=== PATIENT | female | born 1970 | race Caucasian/White ===

== ENCOUNTER 2016-05-18 16:12 | Emergency (ER) | payer BC, OTHER ==
[~2016-05-18] VITALS: Ht 167.6 cm; Wt 53.5 kg
[~2016-05-18 16:12] MED LIST: PANT40TA PO
[2016-05-18 16:21] VITALS: TEMP 37; Ht 167.6 cm; Wt 53.5 kg
[2016-05-18] MEDS ORDERED: LASIX PO (16:28)
[2016-05-18] MEDS ORDERED: SYNTHROID PO (16:28)
[2016-05-18] MEDS ORDERED: ESOM20CA PO (16:28)
[2016-05-18] MEDS ORDERED: METF-384 PO (16:28)
--- NOTE | 2016-05-18 16:53 | EMERGENCY ROOM VISIT NOTE ---
History Report prepared by Claudia: Judd Moreland Under the Supervision of: Dr. Marco Antonio Streeter D.O. First contact with patient: 16:27 Chief Complaint: MENTAL HEALTH EVALUATION Stated Complaint: ELEVATED HEART RATE, MENTAL HEALTH EVAL History of Present Illness The patient is a 45 year old female who presents to the Emergency Room with complaints of persistent weight loss beginning eight years prior to arrival. She came to the ED for medical clearance to receive treatment for her mental health. The patient notes she struggles with anorexia and bulimia. She states she orders medication from a pharmacy in [place] that imports drugs from [place]. The patient notes she takes 1000 mg Levothyroxine daily, 100 mg Lasix daily, and 2-3 g Metformin daily. She states she normally takes 40 mg Prozac daily. The patient notes she takes these medications for weight loss purposes, and has been using these medications for the past eight years. 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 The patient notes she recently ran out of her medication, and she admitted to taking them from the hospital, because she could not help herself. She states she now has a supply of medication, but she would like to receive mental health treatment. The patient notes the most she has weighed was 170 pounds, and the least was 96 pounds. She states she was at her doctor's office today and weighed 118 pounds, but she views herself as needing to lose weight. The patient admits she liked her weight at 96 pounds but knew it was unhealthy. She states she was referred by her family doctor's office, and Caroline Roth PA-C ([facility]) referred her to the ED for medical clearance. The patient notes she sometimes uses laxatives adjusts her medications based on what she eats or how she is feeling. She denies having kidney functions tests performed. The patient notes she has a fast heart rate with the medications she takes, and she last took them this morning. She notes she has never received treatment for her anorexia and bulimia. The patient denies a chance of and being sexually active. She denies suicidal or homicidal ideation. Source of History: patient Onset: 8 years [employer] Position: other (global) Quality: other (weight loss) Timing: other (persistent) Note: Associates symptoms: using medications for weight loss, fast heart rate. Review of Systems See HPI for pertinent positives & negatives. A total of 10 systems reviewed and were otherwise negative. Past Medical & Surgical Medical Problems: (1) ANEMIA NOS (2) IRON DEFIC ANEMIA NOS (3) PERSONAL HISTORY OF PEPTIC ULCER DISEASE Family History Diabetes mellitus Hypertension Social History Smoking Status: Never Smoker Alcohol Use: occasionally Housing Status: lives with family Occupation Status: employed Current/Historical Medications Scheduled Esomeprazole Magnesium (Nexium), 20 MG PO DAILY Metformin Hcl (Glucophage), 1,000-2,000 MG PO BID [Lasix], 100-200 MG PO QAM [Synthroid], 1,200 MCG PO QAM Allergies Coded Allergies: No Known Allergies (Unverified , 05/18/16) Physical Exam Vital Signs Date Time Temp Pulse Resp B/P Pulse Ox O2 Delivery O2 Flow Rate FiO2 05/18/16 20:56 106 18 114/81 98 05/18/16 20:19 106 18 114/81 98 Room Air 05/18/16 16:21 37.0 136 20 139/106 100 Physical Exam CONSTITUTIONAL/VITAL SIGNS: Reviewed / noted above. GENERAL: Non-toxic in appearance. INTEGUMENTARY: Warm, dry, and [place]. HEAD: Normocephalic. EYES: without scleral icterus or trauma. ENT/OROPHARYNX: clear and moist. LYMPHADENOPATHY/NECK: Is supple without lymphadenopathy or meningismus. RESPIRATORY: Lungs clear and equal. CARDIOVASCULAR: Tachycardic rate and regular rhythm. GI/ABDOMEN: Soft and nontender. No organomegaly or pulsatile mass. No rebound or guarding. Normal bowel sounds. EXTREMITIES: Warm and well perfused. BACK: No CVA tenderness. NEUROLOGICAL: Intact without focal deficits. PSYCHIATRIC: Remorseful and tearful. Not suicidal or homicidal. MUSCULOSKELETAL: Normally developed with good muscle tone. Medical Decision & Procedures Laboratory Results 05/18/16 17:05 Red Blood Count 4.78, Mean Corpuscular Volume 87.4, Mean Corpuscular Hemoglobin 28.7, Mean Corpuscular Hemoglobin Concent 32.8, Mean Platelet Volume 10.7, Neutrophils (%) (Auto) 66.6, Lymphocytes (%) (Auto) 27.0, Monocytes (%) (Auto) 5.9, Eosinophils (%) (Auto) 0.3, Basophils (%) (Auto) 0.0, Neutrophils # (Auto) 4.04, Lymphocytes # (Auto) 1.64, Monocytes # (Auto) 0.36, Eosinophils # (Auto) 0.02, Basophils # (Auto) 0.00 05/18/16 17:05 Test 05/18/16 17:05 White Blood Count 6.07 K/uL (4.8-10.8) Red Blood Count 4.78 M/uL (4.2-5.4) Hemoglobin 13.7 g/dL (12.0-16.0) Hematocrit 41.8 % (37-47) Mean Corpuscular Volume 87.4 fL (80-100) Mean Corpuscular Hemoglobin 28.7 pg (25-34) Mean Corpuscular Hemoglobin Concent 32.8 g/dl (32-36) Platelet Count 311 K/uL (130-400) Mean Platelet Volume 10.7 fL (7.4-10.4) Neutrophils (%) (Auto) 66.6 % Lymphocytes (%) (Auto) 27.0 % Monocytes (%) (Auto) 5.9 % Eosinophils (%) (Auto) 0.3 % Basophils (%) (Auto) 0.0 % Neutrophils # (Auto) 4.04 K/uL (1.4-6.5) Lymphocytes # (Auto) 1.64 K/uL (1.2-3.4) Monocytes # (Auto) 0.36 K/uL (0.11-0.59) Eosinophils # (Auto) 0.02 K/uL (0-0.5) Basophils # (Auto) 0.00 K/uL (0-0.2) RDW Standard Deviation 45.4 fL (36.4-46.3) RDW Coefficient of Variation 14.1 % (11.5-14.5) Immature Granulocyte % (Auto) 0.2 % Immature Granulocyte # (Auto) 0.01 K/uL (0.00-0.02) Urine Test NEG (NEG) Anion Gap 12.0 mmol/L (3-11) Est Creatinine Clear Calc Drug Dose 71.4 ml/min Estimated GFR () 97.3 Estimated GFR (Non- 83.9 BUN/Creatinine Ratio 17.6 (10-20) Calcium Level 9.9 mg/dl (8.5-10.1) Total Bilirubin 0.4 mg/dl (0.2-1) Direct Bilirubin < 0.1 mg/dl (0-0.2) Aspartate Amino Transf (AST/SGOT) 27 U/L (15-37) Alanine Aminotransferase (ALT/SGPT) 51 U/L (12-78) Alkaline Phosphatase 106 U/L (45-117) Total Protein 8.4 gm/dl (6.4-8.2) Albumin 4.4 gm/dl (3.4-5.0) Thyroid Stimulating Hormone (TSH) < 0.005 uIu/ml (0.300-4.500) Free Thyroxine > 8.00 ng/dl (0.80-1.60) Free Triiodothyronine > 20.00 pg/ml (2.30-4.20) Salicylates Level < 1.7 mg/dl (2.8-20) Urine Opiates Screen NEG (NEG) Urine Methadone, Qualitative NEG (NEG) Acetaminophen Level < 2 ug/ml (10-30) Urine Barbiturates NEG (NEG) Urine Phencyclidine (PCP) Level NEG (NEG) Ur Amphetamine/Methamphetamine NEG (NEG) MDMA (Ecstasy) Screen NEG (NEG) Urine Benzodiazepines Screen NEG (NEG) Urine Cocaine Metabolite NEG (NEG) Urine Marijuana (THC) NEG (NEG) Ethyl Alcohol mg/dL < 3.0 mg/dl (0-3) Laboratory results as stated above per my review. ECG Indication: tachycardia Rate (beats per minute): 113 Rhythm: sinus tachycardia Findings: no ectopy, other (no acute injury) ED Course 163: Previous medical records were reviewed. The patient was evaluated in room A5. A complete history and physical examination was performed. 2044: On reevaluation, the patient is doing well. I discussed the results and findings with the patient. She verbalized agreement of the treatment plan. The patient was discharged home. Medical Decision differential includes toxic ingestions, self-mutilation, suicidal ideation, suicide attempt, depression. This is a 45-year-old female who presents to the ED with a chief complaint of bulimia/anorexia and using medications to control her weight. The patient states that she has been doing this for about 8 years. She has been using online prescriptions from foreign distributor's. She has been using up to 100 mg of Lasix a day, up to 3 g of metformin and 1200 g of Synthroid. The patient was cut taking medication from a Pyxis machine at [facility] and is at risk of losing her job. The patient came here for help with her problems. She has spoken with a pillowcase cleaner outpatient. The patient is not suicidal or homicidal. Her exam reveals tachycardia. She states that she is normally always tachycardic because of the medication that she is taking. She has no other complaints from a medical standpoint. EKG shows a sinus tachycardia rate 113. CBC was normal. Complete metabolic panel was unremarkable. A TSH is less than 0.005. Repeat T4 is greater than 8 and a free T3 is greater than 20. The patient had similar laboratory studies on 08/18. This is likely related the fact she is taking Synthroid and excess doses. The patient's tox screen was negative and test was negative. The patient is felt to be stable for mental health evaluation. After mental health evaluation, the patient was felt to be stable for discharge. She was not meeting criteria for inpatient care at this time. Outpatient follow-up recommended. Impression Primary Impression: Eating disorder Additional Impression: Drug abuse and dependence Scribe Attestation The scribe's documentation has been prepared under my direction and personally reviewed by me in its entirety. I confirm that the note above accurately reflects all work, treatment, procedures, and medical decision making performed by me. Departure Information Dispostion Home / Self-Care Referrals Caroline Roth C.R.N.P. (PCP) Forms HOME CARE DOCUMENTATION FORM, IMPORTANT VISIT INFORMATION Patient Instructions A Signature Page, My [facility] Additional Instructions Follow-up as recommended with outpatient services. Return for any worsening or new concerns.
[2016-05-18 17:19] LABS: COMPLETE YES; EOS % 0.3 %; HEMATOCRIT 41.8 % (37-47); IG% 0.2 %; LYMPH ABS # 1.64 K/uL (1.2-3.4); MEAN CELL VOLUME 87.4 fL (80-100); MEAN CORPUSCULAR HEMOGLOBIN 28.7 pg (25-34); MEAN CORPUSCULAR HGB CONC 32.8 g/dl (32-36); MEAN PLATELET VOLUME 10.7 fL (7.4-10.4); MONO % 5.9 %; NEUT % 66.6 %; PLATELET COUNT 311 K/uL (130-400); RED BLOOD COUNT 4.78 M/uL (4.2-5.4); WHITE BLOOD COUNT 6.07 K/uL (4.8-10.8)
[2016-05-18 17:40] LABS: ALT/SGPT 51 U/L (12-78); AST/SGOT 27 U/L (15-37); BLOOD UREA NITROGEN 15 mg/dl (7-18); BUN/CREATININE RATIO 17.6 (10-20); CALCIUM 9.9 mg/dl (8.5-10.1); CARBON DIOXIDE 33 mmol/L (21-32); CHLORIDE 93 mmol/L (98-107); CREATININE 0.84 mg/dl (0.60-1.20); GLUCOSE 99 mg/dl (70-99); POTASSIUM 3.4 mmol/L (3.5-5.1); SODIUM 138 mmol/L (136-145)
[2016-05-18 17:46] LABS: ACETAMINOPHEN < 2 ug/ml (10-30)
[2016-05-18 17:47] LABS: BENZODIAZEPINE, URINE NEG (NEG); COCAINE,URINE NEG (NEG); PHENCYCLIDINE, URINE NEG (NEG)
[2016-05-18 17:51] LABS: ALKALINE PHOSPHATASE 106 U/L (45-117); THYROID STIMULATING HORMONE < 0.005 uIu/ml (0.300-4.500)
[2016-05-18 20:56] VITALS: BP 114/81; PULSE 106; O2SAT 98
== END 2016-05-18 20:57 | disposition home or self-care (01) ==
LOC: C.EDB 16:14 → C.EDA 20:57
DX: F50.9 Eating disorder, unspecified (principal); F19.20 Other psychoactive substance dependence, uncomplicated; D50.9 Iron deficiency anemia, unspecified; K27.9 Peptic ulcer, site unspecified, unspecified as acute or chronic, without hemorrhage or perforation; Z83.3 Family history of diabetes mellitus; Z82.49 Family history of ischemic heart disease and other diseases of the circulatory system; Z79.899 Other long term (current) drug therapy

== ENCOUNTER → 2016-09-28 | Outpatient (CLI) | payer OTHER ==
[~2016-09-28] MED LIST changes: +ACET325T96 PO; +BISA10SU5 RE; +CIPR-255 PO; +CPR/500 PO; +ESOM20CA PO; +FLUO27.5 PO; +FLUO40CA8 PO; +LASIX PO; +METF-384 PO; +ONDA4TAB10 SL; +ONDA4TAB46 PO; -PANT40TA PO; +POLY335019 PO; +SENN-61 PO; +SULF-183 PO; +SYNTHROID PO
[2016-09-28 13:15] LABS: FERRITIN 13.7 ng/ml (8.0-388.0); THYROID STIMULATING HORMONE 1.64 uIu/ml (0.300-4.500)
--- NOTE | 2016-10-20 10:28 | CODING QUERY MEDICAL NECESSITY ---
CQSUPPORTING DIAGNOSIS NEEDED A supporting diagnosis is required for the test/procedure performed on this patient in order for us to be reimbursed by the patient's insurance. Please provide a supporting diagnosis for the following test/procedure listed below next to the test name along with your signature. *If there is no additional diagnosis for this patient that would support the following test/procedure please document that below next to the test/procedure. Test(s)/Procedure(s) that require a supporting diagnosis: DOS 09/28/16 VITAMIN D TEST Provider Signature: Date: Thank you Carmen Jacobo Health Information Management Once completed, please kindly fax back to [phone] For questions please call [phone]
== END | disposition home or self-care (01) ==
LOC: C.LAB1850 09:44
PROVIDERS: ATTEND Internal Medicine Endocrinology, Diabetes & Metabolism
DX: E05.40 Thyrotoxicosis factitia without thyrotoxic crisis or storm (principal); D50.9 Iron deficiency anemia, unspecified; F50.9 Eating disorder, unspecified; N20.0 Calculus of kidney

== ENCOUNTER 2017-03-19 12:48 | Inpatient (IN) | payer OTHER ==
[~2017-03-19] VITALS: Ht 165.1 cm; Wt 58.8 kg
[~2017-03-19 12:48] MED LIST changes: -ACET325T96 PO; -BISA10SU5 RE; -CIPR-255 PO; -CPR/500 PO; -FLUO27.5 PO; -FLUO40CA8 PO; -ONDA4TAB10 SL; -ONDA4TAB46 PO; -POLY335019 PO; -SENN-61 PO; -SULF-183 PO
[2017-03-19] MEDS ORDERED: KETOROLAC TROMETHAMINE 15 MG/ML VIAL IV STA (13:31)
[2017-03-19] MEDS ORDERED: SODIUM CHLORIDE 0.9% 1000ML 1,000 ML IV STA ×2 (13:31→14:26)
[2017-03-19 13:55] LABS: COMPLETE YES; EOS % 0.2 %; IG% 0.2 %; LYMPH % 7.9 %; LYMPH ABS # 0.37 K/uL (1.2-3.4); MEAN CELL VOLUME 84.5 fL (80-100); MEAN CORPUSCULAR HEMOGLOBIN 28.5 pg (25-34); MEAN CORPUSCULAR HGB CONC 33.7 g/dl (32-36); MEAN PLATELET VOLUME 9.8 fL (7.4-10.4); MONO % 7.7 %; PLATELET COUNT 124 K/uL (130-400); RED BLOOD COUNT 3.55 M/uL (4.2-5.4)
[2017-03-19] MEDS ORDERED: ACET325T96 PO (14:08)
[2017-03-19] MEDS ORDERED: CIPR-255 PO (14:08)
[2017-03-19] MEDS ORDERED: FLUO40CA8 PO (14:08)
[2017-03-19 14:14] LABS: BUN/CREATININE RATIO 22.1 (10-20); CALCIUM 9.1 mg/dl (8.5-10.1); CREATININE 1.71 mg/dl (0.60-1.20); POTASSIUM 2.7 mmol/L (3.5-5.1)
[2017-03-19 14:17] LABS: ALB/GLOB RATIO 0.5 (0.9-2)
[2017-03-19 14:31] LABS: URINE APPEARANCE CLOUDY (CLEAR); URINE BILIRUBIN NEG (NEG); URINE COLOR YELLOW; URINE EPITHELIAL CELL AUTO >30 /lpf (0-5); URINE NITRITE NEG (NEG); URINE SPECIFIC GRAVITY 1.019 (1.000-1.030); UROBILINOGEN NEG (NEG); ZZUR CULT IF INDIC CLEAN CATCH YES
[2017-03-19 14:44] LABS: MANUAL MICROSCOPIC REQUIRED? NO; REVIEW REQ? YES
[2017-03-19 14:47] LABS: URINE PATH CASTS 0-3 GRANULAR CASTS /lpf (0)
--- NOTE | 2017-03-19 14:50 | DIAGNOSTIC IMAGING REPORT ---
ULTRASOUND KIDNEYS AND BLADDER CLINICAL HISTORY: Bilateral flank pain. Urinary tract infection. COMPARISON STUDY: Abdominal CT dated 10/15/2011. TECHNIQUE: Real-time, grayscale, and color flow sonography of the kidneys and bladder is performed. Images are reviewed in the transverse and longitudinal planes. FINDINGS: Kidneys: The kidneys are normal in size and echotexture. Right kidney appears mildly edematous. The right kidney measures 12.2 cm in length and the left kidney measures 11.7 cm in length. There is no hydronephrosis. No shadowing renal calculi are identified. There is no sonographic evidence of contour deforming renal mass lesion. No perinephric fluid is identified. Bladder: The bladder is normal in appearance. Bilateral ureteral jets were seen. IMPRESSION: 1. The kidneys are normal in size and without hydronephrosis. 2. The right kidney appears mildly edematous. Correlate clinically and with urinalysis for evidence of pyelonephritis. 3. The bladder was normal as visualized. Electronically signed by: Earle Monae M.D. 03/19/2017 2:49 PM Dictated Date/Time: 03/19/2017 2:47 PM
[2017-03-19] MEDS ORDERED: CEFTRIAXONE SOD INJ 1 GM ADDVIAL IV STA (14:58)
[2017-03-19] MEDS ORDERED: POTASSIUM CHLORIDE 10 MEQ / 100ML WTR IV STA (14:58)
[2017-03-19] MEDS ORDERED: POTASSIUM CHLR 10MEQ / WTR IV ONE (15:30)
--- NOTE | 2017-03-19 15:30 | EMERGENCY ROOM VISIT NOTE ---
History First contact with patient: 13:15 Chief Complaint: OTHER COMPLAINT Stated Complaint: POSSIBLE KIDNEY INFECTION History of Present Illness The patient is a 46 year old female who presents to the Emergency Room with complaints of vomiting and back pain. The patient states that 5 days ago, she developed lower abdominal discomfort and had a strong odor in her urine. She was seen by [facility] 2 days ago and diagnosed with a urinary tract infection. She was placed on ciprofloxacin but states that since starting this , she has been vomiting and has not been able to keep the medication down. She has had chills at home but has not taken her temperature. She developed pain in both sides of her back over the past one day. She has been taking Tylenol and ibuprofen at home for her symptoms. She does state she was able to keep down her dose of ciprofloxacin last night and this morning. She has a history of kidney stones but states this does not feel similar. She rates her overall discomfort a 7/10. She reports she has not had anything to eat or drink over the past 4 days. Review of Systems A complete 10 point review of systems was reviewed with the patient with pertinent positives and negatives as per history of present illness. All else were negative. Past Medical/Surgical History Medical Problems: (1) ANEMIA NOS (2) IRON DEFIC ANEMIA NOS (3) PERSONAL HISTORY OF PEPTIC ULCER DISEASE (4) Pyelonephritis (5) Vomiting Family History Diabetes mellitus Hypertension Social History Smoking Status: Never Smoker Alcohol Use: occasionally Housing Status: lives with family Occupation Status: employed Current/Historical Medications Scheduled Ciprofloxacin Hcl (Cipro), 1 TAB PO BID Esomeprazole Magnesium (Nexium), 20 MG PO DAILY Miscellaneous Medications Acetaminophen Tab (Tylenol), 325 MG PO Fluoxetine (Prozac), 40 MG PO Physical Exam Vital Signs Date Time Temp Pulse Resp B/P (MAP) Pulse Ox O2 Delivery O2 Flow Rate FiO2 03/19/17 16:33 78 03/19/17 15:47 79 20 104/71 99 Room Air 03/19/17 15:01 79 18 106/75 100 Room Air 03/19/17 12:53 37.0 89 18 105/74 97 Room Air Physical Exam VITALS: Vitals are noted on the nurse's note and reviewed by myself. Vital signs stable. GENERAL: This is a 46-year-old female, in no acute distress, nondiaphoretic, well-developed well-nourished. EARS: External auditory canals clear, tympanic membranes pearly durant without erythema or effusion bilaterally. EYES: Pupils equal round and reactive to light and accommodation. MOUTH: Mucous membranes slightly dry. HEART: Regular rate and rhythm without murmurs gallops or rubs. LUNGS: Clear to auscultation bilaterally without wheezes, rales or rhonchi. ABDOMEN: Positive bowel sounds x 4. Soft, mild lower abdominal tenderness. Bilateral CVA tenderness. NEURO: Patient was alert and oriented to person place and time. Medical Decision & Procedures ER Provider Diagnostic Interpretation: ULTRASOUND KIDNEYS AND BLADDER CLINICAL HISTORY: Bilateral flank pain. Urinary tract infection. COMPARISON STUDY: Abdominal CT dated 10/15/2011. TECHNIQUE: Real-time, grayscale, and color flow sonography of the kidneys and bladder is performed. Images are reviewed in the transverse and longitudinal planes. FINDINGS: Kidneys: The kidneys are normal in size and echotexture. Right kidney appears mildly edematous. The right kidney measures 12.2 cm in length and the left kidney measures 11.7 cm in length. There is no hydronephrosis. No shadowing renal calculi are identified. There is no sonographic evidence of contour deforming renal mass lesion. No perinephric fluid is identified. Bladder: The bladder is normal in appearance. Bilateral ureteral jets were seen. IMPRESSION: 1. The kidneys are normal in size and without hydronephrosis. 2. The right kidney appears mildly edematous. Correlate clinically and with urinalysis for evidence of pyelonephritis. 3. The bladder was normal as visualized. CT SCAN OF THE ABDOMEN AND PELVIS WITHOUT IV CONTRAST IMPRESSION: 1. The right kidney appears mildly enlarged and edematous, and there is right-sided perinephric stranding. Correlate clinically and with urinalysis for evidence of pyelonephritis. 2. The left kidney is normal in appearance. 3. No renal calculi are identified. Laboratory Results 03/19/17 13:43 Red Blood Count 3.55, Mean Corpuscular Volume 84.5, Mean Corpuscular Hemoglobin 28.5, Mean Corpuscular Hemoglobin Concent 33.7, Mean Platelet Volume 9.8, Neutrophils (%) (Auto) 84.0, Lymphocytes (%) (Auto) 7.9, Monocytes (%) (Auto) 7.7, Eosinophils (%) (Auto) 0.2, Basophils (%) (Auto) 0.0, Neutrophils # (Auto) 3.95, Lymphocytes # (Auto) 0.37, Monocytes # (Auto) 0.36, Eosinophils # (Auto) 0.01, Basophils # (Auto) 0.00 03/19/17 13:43 Test 03/19/17 13:43 03/19/17 15:29 White Blood Count 4.70 K/uL (4.8-10.8) Red Blood Count 3.55 M/uL (4.2-5.4) Hemoglobin 10.1 g/dL (12.0-16.0) Hematocrit 30.0 % (37-47) Mean Corpuscular Volume 84.5 fL (80-100) Mean Corpuscular Hemoglobin 28.5 pg (25-34) Mean Corpuscular Hemoglobin Concent 33.7 g/dl (32-36) Platelet Count 124 K/uL (130-400) Mean Platelet Volume 9.8 fL (7.4-10.4) Neutrophils (%) (Auto) 84.0 % Lymphocytes (%) (Auto) 7.9 % Monocytes (%) (Auto) 7.7 % Eosinophils (%) (Auto) 0.2 % Basophils (%) (Auto) 0.0 % Neutrophils # (Auto) 3.95 K/uL (1.4-6.5) Lymphocytes # (Auto) 0.37 K/uL (1.2-3.4) Monocytes # (Auto) 0.36 K/uL (0.11-0.59) Eosinophils # (Auto) 0.01 K/uL (0-0.5) Basophils # (Auto) 0.00 K/uL (0-0.2) RDW Standard Deviation 53.5 fL (36.4-46.3) RDW Coefficient of Variation 17.1 % (11.5-14.5) Immature Granulocyte % (Auto) 0.2 % Immature Granulocyte # (Auto) 0.01 K/uL (0.00-0.02) Urine Color YELLOW Urine Appearance CLOUDY (CLEAR) Urine pH 5.0 (4.5-7.5) Urine Specific [place] 1.019 (1.000-1.030) Urine Protein 2+ (NEG) Urine Glucose (UA) NEG (NEG) Urine Ketones TRACE (NEG) Urine Occult Blood 2+ (NEG) Urine Nitrite NEG (NEG) Urine Bilirubin NEG (NEG) Urine Urobilinogen NEG (NEG) Urine Leukocyte Esterase SMALL (NEG) Urine WBC (Auto) 10-30 /hpf (0-5) Urine RBC (Auto) 5-10 /hpf (0-4) Urine Hyaline Casts (Auto) 1-5 /lpf (0-5) Urine Epithelial Cells (Auto) >30 /lpf (0-5) Urine Bacteria (Auto) NEG (NEG) Urine Renal Epithelial Cells 0-5 /lpf (0-5) Urine Crystals AMORPHOUS SEDIMENT (NONE Urine Pathogenic Casts 0-3 GRANULAR CASTS /lpf (0) Urine Yeast (Auto) (NONE PRSENT) Urine Test NEG (NEG) Anion Gap 12.0 mmol/L (3-11) Est Creatinine Clear Calc Drug Dose 37.0 ml/min Estimated GFR () 40.9 Estimated GFR (Non- 35.3 BUN/Creatinine Ratio 22.1 (10-20) Calcium Level 9.1 mg/dl (8.5-10.1) Magnesium Level 2.8 mg/dl (1.8-2.4) Total Bilirubin 0.3 mg/dl (0.2-1) Aspartate Amino Transf (AST/SGOT) 32 U/L (15-37) Alanine Aminotransferase (ALT/SGPT) 70 U/L (12-78) Alkaline Phosphatase 191 U/L (45-117) Total Protein 7.5 gm/dl (6.4-8.2) Albumin 2.5 gm/dl (3.4-5.0) Globulin 5.0 gm/dl (2.5-4.0) Albumin/Globulin Ratio 0.5 (0.9-2) Lipase 85 U/L (73-393) Bedside Lactic Acid Venous 0.99 mmol/L (0.90-1.70) Medications Administered Medications (Trade) Dose Ordered Sig/Andrei Route Start Time Stop Time Status Last Admin Dose Admin Sodium Chloride 1,000 ml @ 999 mls/hr Q1H1M STAT IV 03/19/17 13:31 03/19/17 14:31 DC 03/19/17 13:54 999 MLS/HR Sodium Chloride 1,000 ml @ 999 mls/hr Q1H1M STAT IV 03/19/17 14:26 03/19/17 15:26 DC 03/19/17 15:00 999 MLS/HR Ceftriaxone Sodium (Rocephin Inj) 1 gm NOW STAT IV 03/19/17 14:58 03/19/17 15:06 DC 03/19/17 15:14 1 GM Potassium Chloride 10 meq/ Prmx 100 ml @ 100 mls/hr ONE ONCE IV 03/19/17 15:30 03/19/17 16:29 DC 03/19/17 15:48 100 MLS/HR Acetaminophen (Tylenol Tab) 650 mg Q4H PRN PO 03/19/17 16:30 04/18/17 16:29 03/19/17 18:52 650 MG ECG Rate (beats per minute): 79 Rhythm: normal sinus Findings: no acute ischemic change, no ectopy, other (short ND) ED Course The patient was evaluated as above. Labs were drawn and IV access was obtained. Patient was medicated with 1 L normal saline solution. Patient was reevaluated and was feeling better after receiving IV fluids. Findings were discussed with the patient. She is agreeable to admission. Case was discussed with the [facility] hospitalist, Dr. Muniz. They agreed to evaluate the patient for admission. Medical Decision Differential diagnosis includes pyelonephritis, kidney stone, cystitis, dehydration, appendicitis, cholecystitis, among others. The patient is a 46-year-old female who presents today complaining of back pain and vomiting. The patient has been treated with ciprofloxacin at home for a presumed urinary tract infection. Labs revealed a mild pancytopenia. Patient has been anemic in the past. Labs also revealed hypokalemia with a potassium of 2.7. Patient does appear to be dehydrated with a BUN of 38 and creatinine of 1.7. Urinalysis was suggestive of possible infection. Additionally, renal ultrasound shows evidence of right-sided pyelonephritis. I do feel that given the patient's labs and lack of improvement despite antibiotic treatment, she will need to be admitted for further evaluation and care. Her hypokalemia is likely secondary to the vomiting. The patient was agreeable to this. She felt much better after receiving IV fluids in the emergency department. [facility] the patient for [facility]. The patient's case was reviewed with Dr. Falk, ED attending physician, who agreed with my assessment and treatment plan. Medication Reconcilliation Current Medication List: was personally reviewed by me Blood Pressure Screening Patient's blood pressure: Normal blood pressure Impression Primary Impression: Pyelonephritis Additional Impressions: Dehydration Hypokalemia Departure Information Referrals Caroline Roth, C.R.N.P. (PCP) Patient Instructions My [facility] Problem Qualifiers
--- NOTE | 2017-03-19 15:49 | DIAGNOSTIC IMAGING REPORT ---
CT SCAN OF THE ABDOMEN AND PELVIS WITHOUT IV CONTRAST CLINICAL HISTORY: Generalized abdominal pain. Vomiting. COMPARISON STUDY: Abdominal CT dated 10/15/2011. Renal ultrasound dated 03/19/2017. TECHNIQUE: CT scan of the abdomen and pelvis is performed from the lung bases to the proximal femora. Images are reviewed in the axial, sagittal, and coronal planes. IV contrast was not administered for this examination as per the referring clinician. Note that the examination was performed in suboptimal fashion without oral and IV contrast. A dose lowering technique was utilized adhering to the principles of ALARA. CT DOSE: 274.72 mGy.cm FINDINGS: Lung bases: The heart is normal in size and without pericardial effusion. The lung bases are clear noting dependent atelectasis. Liver: The unenhanced liver is normal in size, contour, and attenuation. There is no intrahepatic biliary ductal dilatation. Gallbladder: Unremarkable. Spleen: Normal in size and attenuation. Pancreas: Unremarkable. Adrenal glands: Unremarkable. Kidneys: The right kidney appears mildly enlarged and edematous. There is right-sided perinephric stranding. The left kidney is normal in appearance. There is no hydronephrosis. There are no renal calculi identified. There is no evidence of contour deforming renal mass lesion. Abdominal vasculature: The abdominal aorta is normal in course and caliber. Bowel: The small bowel and colon are normal in course and caliber. The appendix is not visualized. Peritoneum: There is no intraperitoneal free air or abdominal ascites. Lymphadenopathy: None. Pelvic viscera: The bladder, uterus, and adnexa are normal as visualized. Skeletal structures: No lytic or blastic lesions are seen. There is a hemitransitional left lumbosacral segment. Postoperative change is noted in the right proximal femur. IMPRESSION: 1. The right kidney appears mildly enlarged and edematous, and there is right-sided perinephric stranding. Correlate clinically and with urinalysis for evidence of pyelonephritis. 2. The left kidney is normal in appearance. 3. No renal calculi are identified. Electronically signed by: Earle Monae M.D. 03/19/2017 3:48 PM Dictated Date/Time: 03/19/2017 3:43 PM
[2017-03-19] MEDS ORDERED: ALUMINUM/MAGNESIUM/SIMETH (MAALOX MAX) 30 ML UDC PO PRN (16:30)
[2017-03-19] MEDS ORDERED: MAGNESIUM HYDROXIDE SUSP 30 ML UDC PO PRN (16:30)
[2017-03-19] MEDS ORDERED: POLYETHYLENE (MIRALAX) 17 GM PACK PO PRN (16:30)
[2017-03-19] MEDS ORDERED: MoRPHine SULFATE 2 MG/ML CARP IV PRN (16:45)
--- NOTE | 2017-03-19 17:05 | History and Physical ---
History & Physical Date & Time of Service: Mar 19, 2017 at 16:49 Chief Complaint: Possible Kidney Infection Primary Care Physician: Caroline Roth C.RVikyNVikyPViky History of Present Illness Source: patient 46 year old female presented to [facility] with 4 day history of lower abdominal pain The pain started 4 days ago in her lower abdomen. It was constantly dull but would be sharp at times. She says the pain did radiate to her back after two days. She took tylenol and motrin which helped relieve the pain and she rated it as a 7/10. It was associated with nausea, vomiting, fevers, chills, decreased appetite and foul smelling urine. She went to [facility] 2 days ago and was diagnosed with a urinary tract infection. She was given ciprofloxacin but was unable to keep it down due to the vomiting. She was able to keep a dose down yesterday evening and this morning. In the emergency department she was found to have a uti on UA and CT scan showed right side peripnephric stranding around her kidney concerning for pyelonephritis. Her lab work was significant for a creatinine of 1.71 and a potassium of 2.7. Patient was given 2 L of fluids in the ED and was given ceftriaxone IV. It was decided to admit the patient to the hospital for further IV antibiotic treatment. Past Medical/Surgical History Chronic iron deficiency anemia Eating disorder Ectopic Blood clot in left arm Peptic ulcer disease 4 miscarriages Kidney stones Family History Diabetes mellitus Hypertension Social History Smoking Status: Never Smoker Alcohol Use: socially Drug Use: none Marital Status: in relationship Housing status: lives with family Occupational Status: employed Immunizations History of Influenza Vaccine: No History of Tetanus Vaccine?: No History of Pneumococcal: No Multi-Drug Resistant Organisms History of MDRO: No Allergies Coded Allergies: No Known Allergies (Unverified , 05/18/16) Home Medications Scheduled Ciprofloxacin Hcl (Cipro), 1 TAB PO BID Esomeprazole Magnesium (Nexium), 20 MG PO DAILY Miscellaneous Medications Acetaminophen Tab (Tylenol), 325 MG PO Fluoxetine (Prozac), 40 MG PO Review of Systems Constitutional: + fever, + chills, + weakness, + fatigue Respiratory: No cough, No sputum, No shortness of breath Cardiovascular: No chest pain, No claudication, No palpitations Abdomen: + pain, + nausea, + vomiting, No diarrhea, No constipation Genitourinary - Female: No dysuria, No urinary frequency, No vaginal bleeding, No vaginal discharge, No Physical Exam Vital Signs Date Time Temp Pulse Resp B/P (MAP) Pulse Ox O2 Delivery O2 Flow Rate FiO2 03/19/17 16:33 78 03/19/17 15:47 79 20 104/71 99 Room Air 03/19/17 15:01 79 18 106/75 100 Room Air 03/19/17 12:53 37.0 89 18 105/74 97 Room Air General Appearance: WD/WN, no apparent distress Neck: thyroid normal, no JVD, no carotid bruits, trachea midline Respiratory/Chest: lungs clear, no respiratory distress, no accessory muscle use Cardiovascular: regular rate, rhythm, no edema, no murmur, normal peripheral pulses Abdomen/GI: normal bowel sounds, soft, + tenderness (in the suprapubic region and RLQ) Back: + left CVA tenderness, + right CVA tenderness Extremities/Musculoskelatal: no calf tenderness, no pedal edema, non-tender Neurologic/Psych: alert, normal mood/affect, oriented x 3 Skin: normal color, warm/dry, no rash Diagnostics Laboratory Results Results Past 24 Hours Test 03/19/17 13:43 03/19/17 15:29 Range/Units White Blood Count 4.70 4.8-10.8 K/uL Red Blood Count 3.55 4.2-5.4 M/uL Hemoglobin 10.1 12.0-16.0 g/dL Hematocrit 30.0 37-47 % Mean Corpuscular Volume 84.5 80-100 fL Mean Corpuscular Hemoglobin 28.5 25-34 pg Mean Corpuscular Hemoglobin Concent 33.7 32-36 g/dl Platelet Count 124 130-400 K/uL Mean Platelet Volume 9.8 7.4-10.4 fL Neutrophils (%) (Auto) 84.0 % Lymphocytes (%) (Auto) 7.9 % Monocytes (%) (Auto) 7.7 % Eosinophils (%) (Auto) 0.2 % Basophils (%) (Auto) 0.0 % Neutrophils # (Auto) 3.95 1.4-6.5 K/uL Lymphocytes # (Auto) 0.37 1.2-3.4 K/uL Monocytes # (Auto) 0.36 0.11-0.59 K/uL Eosinophils # (Auto) 0.01 0-0.5 K/uL Basophils # (Auto) 0.00 0-0.2 K/uL RDW Standard Deviation 53.5 36.4-46.3 fL RDW Coefficient of Variation 17.1 11.5-14.5 % Immature Granulocyte % (Auto) 0.2 % Immature Granulocyte # (Auto) 0.01 0.00-0.02 K/uL Urine Color YELLOW Urine Appearance CLOUDY CLEAR Urine pH 5.0 4.5-7.5 Urine Specific [place] 1.019 1.000-1.030 Urine Protein 2+ NEG Urine Glucose (UA) NEG NEG Urine Ketones TRACE NEG Urine Occult Blood 2+ NEG Urine Nitrite NEG NEG Urine Bilirubin NEG NEG Urine Urobilinogen NEG NEG Urine Leukocyte Esterase SMALL NEG Urine WBC (Auto) 10-30 0-5 /hpf Urine RBC (Auto) 5-10 0-4 /hpf Urine Hyaline Casts (Auto) 1-5 0-5 /lpf Urine Epithelial Cells (Auto) >30 0-5 /lpf Urine Bacteria (Auto) NEG NEG Urine Renal Epithelial Cells 0-5 0-5 /lpf Urine Crystals AMORPHOUS SEDIMENT NONE PRSENT Urine Pathogenic Casts 0-3 GRANULAR CASTS 0 /lpf Urine Yeast (Auto) NONE PRSENT Urine Test NEG NEG Sodium Level 135 136-145 mmol/L Potassium Level 2.7 3.5-5.1 mmol/L Chloride Level 100 98-107 mmol/L Carbon Dioxide Level 23 21-32 mmol/L Anion Gap 12.0 3-11 mmol/L Blood Urea Nitrogen 38 7-18 mg/dl Creatinine 1.71 0.60-1.20 mg/dl Est Creatinine Clear Calc Drug Dose 37.0 ml/min Estimated GFR () 40.9 Estimated GFR (Non- 35.3 BUN/Creatinine Ratio 22.1 10-20 Random Glucose 85 70-99 mg/dl Calcium Level 9.1 8.5-10.1 mg/dl Magnesium Level 2.8 1.8-2.4 mg/dl Total Bilirubin 0.3 0.2-1 mg/dl Aspartate Amino Transf (AST/SGOT) 32 15-37 U/L Alanine Aminotransferase (ALT/SGPT) 70 12-78 U/L Alkaline Phosphatase 191 45-117 U/L Total Protein 7.5 6.4-8.2 gm/dl Albumin 2.5 3.4-5.0 gm/dl Globulin 5.0 2.5-4.0 gm/dl Albumin/Globulin Ratio 0.5 0.9-2 Lipase 85 73-393 U/L Bedside Lactic Acid Venous 0.99 0.90-1.70 mmol/L Microbiology Results 03/19/17 Blood Culture, Received Pending 03/19/17 Blood Culture, Received Pending 03/19/17 Urine Culture, Received Pending Diagnostic Radiology CT scan IMPRESSION: 1. The right kidney appears mildly enlarged and edematous, and there is right-sided perinephric stranding. Correlate clinically and with urinalysis for evidence of pyelonephritis. 2. The left kidney is normal in appearance. 3. No renal calculi are identified. EKG Sinus rhythm with short pr interval Impression Assessment and Plan Assessment: 46 year old female admitted to the hospital for R sided pyelonephritis Plan: Pyelonephritis IV antibiotics with 1gram of Rocephin q24 hours IV NS at maintenance with 40meq of potassium Zofran q6 prn for nausea Morphine 2 mg prn for pain Urine culture and blood culture pending Follow CBC and fever curve Hx of eating disorder continue prozac continue PPI PO Anemia hgb 10.1 on admission MCV normocytic hx of iron deficiency anemia continue to follow DVT prophylaxis: Lovenox SQ Diet: Regular Dispo: discharge once culture return and transition to PO antibiotics Code: FULL Level of Care Med/Surg Resuscitation Status FULL RESUSCITATION VTE Prophylaxis VTE Risk Assessment Done? Y/N: Yes Risk Level: Moderate Given or contraindicated: Enoxaparin (Lovenox)SQ Assessment/Plan 46 y/o female h/o eating disorder w/ single episode of clotting presents with nausea/vomiting and abdominal/flank pain c/w pyelonephritis. Following ED interventions, pt reports improvements in pain and nausea. Reports no palpitations, CP/SOB. S1/S2 nl RRR no MCG, CTAB. Suprapubic TTP but nondistended and BS+ve. At present, agree w/ continued IV ceftriaxone, IV hydration w/ K+ supplementation and monitoring overnight.
[2017-03-19 18:48] VITALS: BP 108/71; PULSE 82; TEMP 36.8; O2SAT 98; Ht 165.1 cm; Wt 58.8 kg
[2017-03-19] MEDS: ACETAMINOPHEN 325 MG TAB PO PRN (18:52)
[2017-03-19 19:46] LABS: INR 0.9 (0.9-1.1); PROTHROMBIN TIME (PATIENT) 9.9 SECONDS (9.0-12.0)
[2017-03-19] MEDS: POTASSIUM CHLORIDE INJ 40 MEQ in SODIUM CHLORIDE 0.9% 1000ML 1,000 ML IV SCH (20:27)
[2017-03-19] MEDS: ENOXAPARIN 40 MG/0.4 ML SYR SQ SCH (23:32)
[2017-03-20 00:08] VITALS: BP 93/58; TEMP 37.3; O2SAT 97
[2017-03-20] MEDS: ACETAMINOPHEN 325 MG TAB PO PRN ×3 (03:06→20:33)
[2017-03-20] MEDS: ONDANSETRON INJ 2 MG/ML 2 ML VIAL IV PRN ×2 (03:07→20:33)
[2017-03-20] MEDS: POTASSIUM CHLORIDE INJ 40 MEQ in SODIUM CHLORIDE 0.9% 1000ML 1,000 ML IV SCH ×2 (05:08→14:44)
[2017-03-20 07:53] LABS: BASO % 0.2 %; BASO ABS # 0.01 K/uL (0-0.2); COMPLETE YES; EOS % 0.8 %; HEMATOCRIT 30.9 % (37-47); IG% 0.2 %; LYMPH % 19.2 %; MEAN CELL VOLUME 85.6 fL (80-100); MEAN CORPUSCULAR HEMOGLOBIN 28.3 pg (25-34); MEAN PLATELET VOLUME 9.9 fL (7.4-10.4); MONO % 15.1 %; NEUT % 64.5 %; PLATELET COUNT 129 K/uL (130-400); RED BLOOD COUNT 3.61 M/uL (4.2-5.4); WHITE BLOOD COUNT 5.22 K/uL (4.8-10.8)
[2017-03-20 08:25] LABS: ALB/GLOB RATIO 0.4 (0.9-2); CALCIUM 8.6 mg/dl (8.5-10.1); CREATININE 1.34 mg/dl (0.60-1.20); POTASSIUM 2.6 mmol/L (3.5-5.1)
[2017-03-20 08:35] VITALS: BP 98/63; PULSE 75; TEMP 36.3; O2SAT 100
[2017-03-20] MEDS: PANTOprazole SOD 40 MG TAB PO SCH (08:45)
[2017-03-20] MEDS: FLUOXETINE HCL 20 MG CAP PO SCH (08:46)
[2017-03-20] MEDS ORDERED: POTASSIUM CHLORIDE 20 MEQ TABCR PO STA (10:16)
--- NOTE | 2017-03-20 10:19 | Family Medicine Progress Note ---
Progress Note Date of Service Mar 20, 2017. Subjective Pt evaluation today including: conversation w/ patient, physical exam, chart review, lab review The patient was seen and examined at bedside. Pt feels slightly better than yesterday. Pt's back pain has resolved. Patient is resting comfortably in bed. IVF infusion. Eating and urinating well. Plan of care was described to the patient and all questions were answered. Constitutional: + chills, + weakness, No fever, No sweats Respiratory: No cough, No sputum, No wheezing, No shortness of breath, No dyspnea on exertion Cardiovascular: No chest pain Female : No dysuria, No urinary frequency, No hematuria, No incontinence, No abnormal vaginal bleeding, No vaginal discharge Neurologic: No memory loss Skin: No rash Objective Physical Exam General Appearance: WD/WN, no apparent distress Eyes: PERRL Neck: supple Respiratory/Chest: chest non-tender, lungs clear, normal breath sounds, no respiratory distress, no accessory muscle use Cardiovascular: regular rate, rhythm, no edema, no gallop, no JVD, no murmur Abdomen: normal bowel sounds, soft, no organomegaly, no pulsatile mass, + pertinent finding (mild suprapubic tenderness, no CVA tenderness bilaterally. ) Extremities: normal range of motion, non-tender, normal inspection, no pedal edema, no calf tenderness Neurologic/Psychiatric: no motor/sensory deficits, alert, normal mood/affect, oriented x 3 Skin: no rash Assessment and Plan 46F admitted to the hospital for R sided pyelonephritis. Started on Ceftriaxone 1g Daily and IVF. Awaiting blood and urine culture results. Pyelonephritis * CVA tenderness has resolved, pt continues to have suprapubic tenderness. Afebrile. * c/w 1g of Rocephin q24 hours IV, This is Day #2. * c/w NSS @100mls/hr with 40meq KCL * Zofran q6 prn for nausea * Morphine 2 mg prn for pain * Urine culture (prelim - no growth) and blood culture pending Hx of eating disorder * continue Fluoxetine * continue PPI PO Anemia * Hgb 10.2 on admission * MCV normocytic * Hx of iron deficiency anemia * Continue to follow. Hypokalemia * Pt received 40meq PO + 20meq KCL + IVF with 40meq added to the bag @ 100mls/ hr. * In the PM K+ was 3.3, will give another 40meq PO and recheck in the AM. DVT prophylaxis: Lovenox SQ Diet: Regular Dispo: discharge once culture return and transition to PO antibiotics Code: FULL Resident Involvement: Resident Care Provided Care Provided: Adult [facility] Medicine Assessment/Plan Resident Physician Supervision Note: I was present with Dr. Esparza during the history and exam. I discussed the case with the resident and agree with the findings and plan as documented in the note. Any exceptions or clarifications are listed here. 46 y/o female h/o eating disorder w/ single episode of clotting presents with nausea/vomiting and abdominal/flank pain c/w pyelonephritis. Pt states her pain has nearly resolved today and her nausea has abated. Reports no palpitations, CP /SOB. S1/S2 nl RRR no MCG, CTAB. Suprapubic TTP but nondistended and BS+ve. Would continue IV abx until C/S returns and narrow from there. Would continue repletion of potassium w/ recheck in the afternoon.
[2017-03-20] MEDS: POTASSIUM CHLR 10 MEQ / WTR 10 MEQ in PREMIXED WATER 100 ML IV SCH ×2 (11:14→12:40)
[2017-03-20] MEDS ORDERED: CEFTRIAXONE SOD INJ 1 GM in DEXTROSE 5% ADD-VANTAGE 50ML 50 ML IV SCH (15:00)
[2017-03-20 15:13] LABS: BUN/CREATININE RATIO 14.9 (10-20); CALCIUM 8.1 mg/dl (8.5-10.1); CREATININE 1.72 mg/dl (0.60-1.20); POTASSIUM 3.3 mmol/L (3.5-5.1)
[2017-03-20 15:22] VITALS: BP 98/62; PULSE 86; TEMP 37; O2SAT 98
[2017-03-20] MEDS ORDERED: POTASSIUM CHLORIDE 20 MEQ TABCR PO ONE (16:30)
[2017-03-20] MEDS: ENOXAPARIN 40 MG/0.4 ML SYR SQ SCH (20:34)
[2017-03-20 23:34] VITALS: BP 92/55; PULSE 83; TEMP 37.6; O2SAT 93
[2017-03-21] MEDS: POTASSIUM CHLORIDE INJ 40 MEQ in SODIUM CHLORIDE 0.9% 1000ML 1,000 ML IV SCH ×2 (01:30→11:18)
[2017-03-21 06:58] VITALS: BP 95/63; PULSE 84; TEMP 37.1; O2SAT 98
--- NOTE | 2017-03-21 07:11 | Family Medicine Progress Note ---
Progress Note Date of Service Mar 21, 2017.
[2017-03-21 07:30] LABS: BUN/CREATININE RATIO 19.3 (10-20); CALCIUM 7.9 mg/dl (8.5-10.1); CREATININE 1.34 mg/dl (0.60-1.20); POTASSIUM 3.6 mmol/L (3.5-5.1)
[2017-03-21] MEDS: FLUOXETINE HCL 20 MG CAP PO SCH (08:24)
[2017-03-21] MEDS: PANTOprazole SOD 40 MG TAB PO SCH (08:24)
[2017-03-21] MEDS: ACETAMINOPHEN 325 MG TAB PO PRN (08:24)
[2017-03-21] MEDS ORDERED: CPR/500 PO ×2 (09:30→13:05)
[2017-03-21] MEDS ORDERED: ONDA4TAB10 SL (09:30)
--- NOTE | 2017-03-21 09:39 | Discharge Instructions ---
Discharge Instructions Date of Service Mar 21, 2017. Admission Reason for Admission: Pyelonephritis; Vomiting Discharge Discharge Diagnosis / Problem: Pyelonephritis Discharge Goals Goal(s): Decrease discomfort, Improve function, Increase independence, Improve disease control, Improve nutritional status, Learn about illness Activity Recommendations Activity Limitations: per Instructions/Follow-up section . Instructions / Follow-Up Instructions / Follow-Up Please follow up with your PCP within 7 days. You are being discharged on Ciprofloxacin. You should take 8 more days of Ciprofloxacin. The dose is 500mg every 12 hours. Information on Ciprofloxacin will be attached to your discharge packet. Please read this information carefully. If you experience Nausea or Vomiting while taking Ciprofloxacin we have also prescribed a medication called Zofran to help keep your Ciprofloxacin down. If you vomit within 30 minutes of taking your Ciprofloxacin please take an additional pill. You may try taking the Zofran prior to taking the Cipro if you expect that the Ciprofloxacin will make your nauseous. While in the hospital your preliminary blood and urine cultures are negative. Should these cultures come back positive someone from the hospital will contact you. Follow up with your PCP is recommended within 7 days. Information on Pyelonephritis (2 pages), Zofran and Ciprofloxacin will be attached to your discharge information. Please read this information carefully. Current Hospital Diet Patient's current hospital diet: Regular Diet Discharge Diet Recommended Diet: Regular Diet Pending Studies Studies pending at discharge: yes List of pending studies: Final Blood and Urine Cultures (both negative at 2 days). Medical Emergencies . Who to Call and When: Medical Emergencies: If at any time you feel your situation is an emergency, please call 911 immediately. . Non-Emergent Contact Non-Emergency issues call your: Primary Care Provider . . "Provider Documentation" section prepared by Garett Esparza. . VTE Core Measure Inpt VTE Proph given/why not?: Enoxaparin (Lovenox)SQ Resident Involvement: Resident Care Provided Care Provided: Adult Hospital Medicine
[2017-03-21 13:33] VITALS: BP 95/63; PULSE 84; TEMP 37.1; O2SAT 98
--- NOTE | 2017-03-21 13:40 | Discharge Summary ---
Discharge Summary Date of Service Mar 21, 2017. (Garett Esparza M.D.) Discharge Summary Admission Date: Mar 19, 2017 at 16:35 Discharge Date: Mar 21, 2017 Discharge Disposition: Home Principal Diagnosis: Pyelonephritis Immunizations: Have You Had Influenza Vaccine: No History of Tetanus Vaccine?: No History of Pneumococcal: No Consultations: CT SCAN OF THE ABDOMEN AND PELVIS WITHOUT IV CONTRAST CLINICAL HISTORY: Generalized abdominal pain. Vomiting. COMPARISON STUDY: Abdominal CT dated 10/15/2011. Renal ultrasound dated 03/19/2017. TECHNIQUE: CT scan of the abdomen and pelvis is performed from the lung bases to the proximal femora. Images are reviewed in the axial, sagittal, and coronal planes. IV contrast was not administered for this examination as per the referring clinician. Note that the examination was performed in suboptimal fashion without oral and IV contrast. A dose lowering technique was utilized adhering to the principles of ALARA. CT DOSE: 274.72 mGy.cm FINDINGS: Lung bases: The heart is normal in size and without pericardial effusion. The lung bases are clear noting dependent atelectasis. Liver: The unenhanced liver is normal in size, contour, and attenuation. There is no intrahepatic biliary ductal dilatation. Gallbladder: Unremarkable. Spleen: Normal in size and attenuation. Pancreas: Unremarkable. Adrenal glands: Unremarkable. Kidneys: The right kidney appears mildly enlarged and edematous. There is right-sided perinephric stranding. The left kidney is normal in appearance. There is no hydronephrosis. There are no renal calculi identified. There is no evidence of contour deforming renal mass lesion. Abdominal vasculature: The abdominal aorta is normal in course and caliber. Bowel: The small bowel and colon are normal in course and caliber. The appendix is not visualized. Peritoneum: There is no intraperitoneal free air or abdominal ascites. Lymphadenopathy: None. Pelvic viscera: The bladder, uterus, and adnexa are normal as visualized. Skeletal structures: No lytic or blastic lesions are seen. There is a hemitransitional left lumbosacral segment. Postoperative change is noted in the right proximal femur. IMPRESSION: 1. The right kidney appears mildly enlarged and edematous, and there is right-sided perinephric stranding. Correlate clinically and with urinalysis for evidence of pyelonephritis. 2. The left kidney is normal in appearance. 3. No renal calculi are identified. ULTRASOUND KIDNEYS AND BLADDER CLINICAL HISTORY: Bilateral flank pain. Urinary tract infection. COMPARISON STUDY: Abdominal CT dated 10/15/2011. TECHNIQUE: Real-time, grayscale, and color flow sonography of the kidneys and bladder is performed. Images are reviewed in the transverse and longitudinal planes. FINDINGS: Kidneys: The kidneys are normal in size and echotexture. Right kidney appears mildly edematous. The right kidney measures 12.2 cm in length and the left kidney measures 11.7 cm in length. There is no hydronephrosis. No shadowing renal calculi are identified. There is no sonographic evidence of contour deforming renal mass lesion. No perinephric fluid is identified. Bladder: The bladder is normal in appearance. Bilateral ureteral jets were seen. IMPRESSION: 1. The kidneys are normal in size and without hydronephrosis. 2. The right kidney appears mildly edematous. Correlate clinically and with urinalysis for evidence of pyelonephritis. 3. The bladder was normal as visualized. (Garett Esparza M.D.) Medication Reconciliation New Medications: Ciprofloxacin (Ciprofloxacin HCl) 500 Mg Tab 1 TAB PO Q12 for 8 Days, #16 TAB Ondasetron Odt (Zofran Odt) 4 Mg Tab 4 MG SL Q12 for Nausea or Vomiting for 4 Days, #8 TAB Continued Medications: Acetaminophen Tab (Tylenol) 325 Mg Tab 325 MG PO, TAB Esomeprazole Magnesium (Nexium) 20 Mg Capcr 20 MG PO DAILY, CAP Fluoxetine (Prozac) 40 Mg Cap 40 MG PO, CAP Discontinued Medications: Ciprofloxacin Hcl (Cipro) 500 Mg Tab 1 TAB PO BID for 7 Days, #14 TAB Discharge Exam The patient was seen and examined at bedside. Pt had a mild temperature elevation at 11pm and woke up with chills. She states that she feels better than the previous day. No dysuria. Pt states that the foul odor of her urine that she had last week has also resolved. She is amenable to staying or being discharged depending on our recommendations. Patient is resting comfortably in bed. Denies having any pain. Eating and urinating well. Plan of care was described to the patient and all questions were answered. Review of Systems: Constitutional: No fever, No chills Respiratory: No cough, No sputum, No wheezing, No shortness of breath, No dyspnea on exertion Cardiovascular: No chest pain Abdomen: No pain, No nausea, No vomiting, No diarrhea, No constipation Genitourinary - Female: No dysuria, No urinary frequency, No urinary urgency , No urinary incontinence, No urinary retention, No menorrhagia, No rash, No vaginal bleeding, No vaginal discharge, No vaginal itching Genitourinary - Male: No hematuria Integumentary: No rash (Garett Esparza M.D.) Hospital Course 46F admitted to the hospital for R sided pyelonephritis. She received two doses of Ceftriaxone 1g Q24H. Blood cultures are negative after 2 days. Urine cultures are negative. Patient was discharged with a 8 day course of Cipro and 8 tabs of ODT 4mg of Zofran. It is suspected that the patient's worsening of UTI was due to medication non compliance 2/2 vomiting. Because the urine cultures were negative we suspect that the offending bacteria was sensitive to Cipro and thus would make it a good choice on discharge. Warning signs (fever, increasing lethargy, flank pain) were reviewed with the patient and she was instructed to schedule an appointment with her PCP or come to urgent care if she experiences any of these warning signs. Patient was also aggressively repleted for low potassium (2.6 on admission). On discharge her Potassium level was 3.6. Patients home medications were continued during her admission. Total Time Spent: Greater than 30 minutes (45 minutes) This includes examination of the patient, discharge planning, medication reconciliation, and communication with other providers. (Garett Esparza M.D.) Discharge Instructions Please refer to the electronic Patient Visit Report (Discharge Instructions) for additional information. (Garett Esparza M.D.) Follow-Up PCP within one week. (Garett Esparza M.D.) Resident Involvement: Resident Care Provided Care Provided: [facility] Medicine (Garett Esparza M.D.) Assessment/Plan Resident Physician Supervision Note: I was present with Dr. Esparza during the history and exam. I discussed the case with the resident and agree with the findings and plan as documented in the note. Any exceptions or clarifications are listed here. 46 y/o female h/o eating disorder w/ single episode of clotting presents with nausea/vomiting and abdominal/flank pain c/w pyelonephritis. Pt reports mild flushing overnight but resolution of her abdominal and flank pain at rest and no nausea. Reports no palpitations, CP/SOB. S1/S2 nl RRR no MCG, CTAB. Suprapubic TTP but nondistended and BS+ve. +ve flank pain, improved from time of admission Blood cultures negative x 2 days with improvement of WBC on abx. Will transition to PO ciprofloxacin for completion of course as pt has tolerated in the past and is now w/o nausea/vomiting. Zofran PRN as noted. Was hypokalemic and elevated creatinine on admission and improved with repletion and hydration. Would merit recheck on outpatient follow up. (Álvaro Hernadez MD)
== END 2017-03-21 14:10 | disposition home or self-care (01) | DRG 690 ==
LOC: C.EDB 12:49 → C.MS4W 16:35 → ENRESERV 16:59
PROVIDERS: ADMIT Family Medicine; ATTEND Family Medicine
DX: N12 Tubulo-interstitial nephritis, not specified as acute or chronic (principal); D50.9 Iron deficiency anemia, unspecified; F50.9 Eating disorder, unspecified; N39.0 Urinary tract infection, site not specified; E87.6 Hypokalemia; Z83.3 Family history of diabetes mellitus; Z86.718 Personal history of other venous thrombosis and embolism; Z87.442 Personal history of urinary calculi; Z87.11 Personal history of peptic ulcer disease; Z82.49 Family history of ischemic heart disease and other diseases of the circulatory system

== ENCOUNTER → 2017-03-25 | Outpatient (CLI) | payer OTHER ==
[~2017-03-25] MED LIST changes: +ACET325T96 PO; +BISA10SU5 RE; +CPR/500 PO; +FLUO27.5 PO; +FLUO40CA8 PO; -LASIX PO; -METF-384 PO; +ONDA4TAB10 SL; +ONDA4TAB46 PO; +POLY335019 PO; +SENN-61 PO; +SULF-183 PO; -SYNTHROID PO
[2017-03-25 13:02] LABS: BLOOD UREA NITROGEN 53 mg/dl (7-18); BUN/CREATININE RATIO 45.4 (10-20); CALCIUM 9.5 mg/dl (8.5-10.1); CARBON DIOXIDE 29 mmol/L (21-32); CHLORIDE 93 mmol/L (98-107); CREATININE 1.16 mg/dl (0.60-1.20); GLUCOSE 101 mg/dl (70-99); POTASSIUM 3.2 mmol/L (3.5-5.1); SODIUM 134 mmol/L (136-145)
== END | disposition home or self-care (01) ==
LOC: C.LABBFT 09:52
PROVIDERS: ATTEND Nurse Practitioner
DX: N12 Tubulo-interstitial nephritis, not specified as acute or chronic (principal)

== ENCOUNTER 2017-03-29 18:48 | Inpatient (IN) | payer OTHER ==
[~2017-03-29] VITALS: Ht 165.1 cm; Wt 60.6 kg
[~2017-03-29 18:48] MED LIST changes: -BISA10SU5 RE; -FLUO27.5 PO; -ONDA4TAB10 SL; -ONDA4TAB46 PO; -POLY335019 PO; -SENN-61 PO; -SULF-183 PO
[2017-03-29] MEDS ORDERED: LIDOCAINE HCL 2% VISC SOLN 20 ML UDC PO STA (19:01)
[2017-03-29] MEDS ORDERED: ALUMINUM/MAGNESIUM SUSP 30 ML UDC PO STA (19:01)
[2017-03-29 19:34] LABS: BASO % 0.5 %; BASO ABS # 0.04 K/uL (0-0.2); COMPLETE YES; EOS % 0.4 %; HEMATOCRIT 37.7 % (37-47); IG% 0.2 %; LYMPH % 19.9 %; MEAN CELL VOLUME 88.5 fL (80-100); MEAN CORPUSCULAR HEMOGLOBIN 29.1 pg (25-34); MEAN CORPUSCULAR HGB CONC 32.9 g/dl (32-36); MEAN PLATELET VOLUME 9.4 fL (7.4-10.4); MONO % 5.7 %; NEUT % 73.3 %; PLATELET COUNT 643 K/uL (130-400); RED BLOOD COUNT 4.26 M/uL (4.2-5.4); WHITE BLOOD COUNT 8.56 K/uL (4.8-10.8)
[2017-03-29 19:47] LABS: MANUAL MICROSCOPIC REQUIRED? YES; URINE APPEARANCE CLEAR (CLEAR); URINE BILIRUBIN NEG (NEG); URINE COLOR YELLOW; URINE NITRITE NEG (NEG); URINE PH 6.5 (4.5-7.5); UROBILINOGEN NEG (NEG)
[2017-03-29 19:49] LABS: REVIEW REQ? NO
[2017-03-29 19:56] LABS: URINE BACTERIA NEG (NEG); URINE RBC 0-4 /hpf (0-4)
[2017-03-29 19:57] LABS: ZZUR CULT IF INDIC CLEAN CATCH NO
[2017-03-29] MEDS ORDERED: ONDANSETRON INJ 2 MG/ML 2 ML VIAL IV STA (20:18)
[2017-03-29] MEDS ORDERED: ACETAMINOPHEN 500 MG TAB PO STA (20:18)
[2017-03-29] MEDS ORDERED: FLUO27.5 PO (20:24)
[2017-03-29] MEDS ORDERED: ONDA4TAB46 PO (20:27)
[2017-03-29] MEDS ORDERED: ONDA4TAB10 SL (20:27)
[2017-03-29 20:40] LABS: ALKALINE PHOSPHATASE 187 U/L (45-117); ALT/SGPT 38 U/L (12-78); AST/SGOT 21 U/L (15-37); BLOOD UREA NITROGEN 24 mg/dl (7-18); BUN/CREATININE RATIO 21.2 (10-20); CARBON DIOXIDE 28 mmol/L (21-32); CHLORIDE 91 mmol/L (98-107); CREATININE 1.13 mg/dl (0.60-1.20); GLUCOSE 140 mg/dl (70-99); POTASSIUM 2.1 mmol/L (3.5-5.1); SODIUM 133 mmol/L (136-145)
[2017-03-29] MEDS ORDERED: POTASSIUM CHLR 20 MEQ / WTR 20 MEQ in PREMIXED WATER 100 ML IV STA (20:47)
[2017-03-29] MEDS ORDERED: OPTIRAY 320 IV PRN (21:15)
[2017-03-29] MEDS ORDERED: POTASSIUM CHLR 10MEQ / WTR IV SCH (21:15)
--- NOTE | 2017-03-29 21:27 | EMERGENCY ROOM VISIT NOTE ---
History First contact with patient: 18:55 Chief Complaint: ABDOMINAL PAIN Stated Complaint: GASTRIC PAIN History of Present Illness The patient is a 46 year old female who presents to the Emergency Room with complaints of epigastric pain. The patient states that it has been intermittent since she was discharged from the hospital on March 21 for pyelonephritis. She states today the pain was more severe. She describes it as a pain and then going into a pressure feeling in the epigastric region. She admits to slight nausea but denies any vomiting. The patient does have a history of GERD for which she is on Nexium. She also took Zantac today without any relief. The patient also states that she's had ongoing loose stools since being discharged from the hospital. She is taking her Cipro as prescribed. The patient denies any bloody stools. The patient denies any fever, urinary symptoms or vaginal discharge. Review of Systems 10 system review was performed and was negative unless stated otherwise history of present illness. Past Medical/Surgical History Medical Problems: (1) ANEMIA NOS (2) IRON DEFIC ANEMIA NOS (3) PERSONAL HISTORY OF PEPTIC ULCER DISEASE (4) Pyelonephritis (5) Vomiting Family History Diabetes mellitus Hypertension Social History Smoking Status: Never Smoker Alcohol Use: occasionally Drug Use: none Marital Status: in relationship Housing Status: lives with family Occupation Status: employed Current/Historical Medications Scheduled Ciprofloxacin (Ciprofloxacin HCl), 1 TAB PO Q12 Esomeprazole Magnesium (Nexium), 20 MG PO DAILY Fluoxetine Hcl (Fluoxetine Hcl), 60 MG PO DAILY Ondasetron Odt (Zofran Odt), 4 MG SL Q12 Scheduled PRN Acetaminophen Tab (Tylenol), 325 MG PO Q4H PRN for Pain Allergies Coded Allergies: No Known Allergies (Unverified , 05/18/16) Physical Exam Vital Signs Date Time Temp Pulse Resp B/P (MAP) Pulse Ox O2 Delivery O2 Flow Rate FiO2 03/29/17 18:51 36.7 109 18 134/82 98 Room Air Physical Exam GENERAL: 26-year-old white female appears in no acute distress. MENTAL Status: Alert and oriented 3. MOUTH: Mucosa is moist NECK: Supple, no lymphadenopathy noted. No carotid bruits noted. LUNGS: Clear auscultation without wheezes rales or rhonchi. CARDIAC: Regular rate and rhythm without murmur. Pulses is full and equal throughout. BACK: No CVA tenderness noted. ABDOMEN: Positive bowel sounds all 4 quadrants. Soft, tenderness palpation in the epigastric region otherwise nontender to palpation without organomegaly or masses. EXTREMITIES: No cyanosis or edema noted. Medical Decision & Procedures Laboratory Results 03/29/17 19:17 Red Blood Count 4.26, Mean Corpuscular Volume 88.5, Mean Corpuscular Hemoglobin 29.1, Mean Corpuscular Hemoglobin Concent 32.9, Mean Platelet Volume 9.4, Neutrophils (%) (Auto) 73.3, Lymphocytes (%) (Auto) 19.9, Monocytes (%) (Auto) 5.7, Eosinophils (%) (Auto) 0.4, Basophils (%) (Auto) 0.5, Neutrophils # (Auto) 6.28, Lymphocytes # (Auto) 1.70, Monocytes # (Auto) 0.49, Eosinophils # (Auto) 0.03, Basophils # (Auto) 0.04 03/29/17 19:17 Test 03/29/17 19:17 03/29/17 19:20 White Blood Count 8.56 K/uL (4.8-10.8) Red Blood Count 4.26 M/uL (4.2-5.4) Hemoglobin 12.4 g/dL (12.0-16.0) Hematocrit 37.7 % (37-47) Mean Corpuscular Volume 88.5 fL (80-100) Mean Corpuscular Hemoglobin 29.1 pg (25-34) Mean Corpuscular Hemoglobin Concent 32.9 g/dl (32-36) Platelet Count 643 K/uL (130-400) Mean Platelet Volume 9.4 fL (7.4-10.4) Neutrophils (%) (Auto) 73.3 % Lymphocytes (%) (Auto) 19.9 % Monocytes (%) (Auto) 5.7 % Eosinophils (%) (Auto) 0.4 % Basophils (%) (Auto) 0.5 % Neutrophils # (Auto) 6.28 K/uL (1.4-6.5) Lymphocytes # (Auto) 1.70 K/uL (1.2-3.4) Monocytes # (Auto) 0.49 K/uL (0.11-0.59) Eosinophils # (Auto) 0.03 K/uL (0-0.5) Basophils # (Auto) 0.04 K/uL (0-0.2) RDW Standard Deviation 54.9 fL (36.4-46.3) RDW Coefficient of Variation 17.0 % (11.5-14.5) Immature Granulocyte % (Auto) 0.2 % Immature Granulocyte # (Auto) 0.02 K/uL (0.00-0.02) Anion Gap 15.0 mmol/L (3-11) Est Creatinine Clear Calc Drug Dose 55.7 ml/min Estimated GFR () 67.5 Estimated GFR (Non- 58.2 BUN/Creatinine Ratio 21.2 (10-20) Calcium Level 9.0 mg/dl (8.5-10.1) Total Bilirubin 0.3 mg/dl (0.2-1) Direct Bilirubin < 0.1 mg/dl (0-0.2) Aspartate Amino Transf (AST/SGOT) 21 U/L (15-37) Alanine Aminotransferase (ALT/SGPT) 38 U/L (12-78) Alkaline Phosphatase 187 U/L (45-117) Total Protein 8.8 gm/dl (6.4-8.2) Albumin 3.9 gm/dl (3.4-5.0) Lipase 199 U/L (73-393) Urine Color YELLOW Urine Appearance CLEAR (CLEAR) Urine pH 6.5 (4.5-7.5) Urine Specific [place] 1.010 (1.000-1.030) Urine Protein NEG (NEG) Urine Glucose (UA) NEG (NEG) Urine Ketones NEG (NEG) Urine Occult Blood TRACE (NEG) Urine Nitrite NEG (NEG) Urine Bilirubin NEG (NEG) Urine Urobilinogen NEG (NEG) Urine Leukocyte Esterase NEG (NEG) Urine RBC 0-4 /hpf (0-4) Urine WBC 1-5 /hpf (0-5) Urine Epithelial Cells 10-20 /lpf (0-5) Urine Bacteria NEG (NEG) Medications Administered Medications (Trade) Dose Ordered Sig/Andrei Route Start Time Stop Time Status Last Admin Dose Admin Lidocaine HCl (Viscous Lidocaine 2% Soln) 10 ml NOW STAT PO 03/29/17 19:01 03/29/17 19:03 DC 03/29/17 19:26 10 ML Al Hydroxide/Mg Hydroxide (Maalox Susp) 30 ml NOW STAT PO 03/29/17 19:01 03/29/17 19:03 DC 03/29/17 19:26 30 ML Acetaminophen (Tylenol Tab) 1,000 mg NOW STAT PO 03/29/17 20:18 03/29/17 20:20 DC 03/29/17 20:23 1,000 MG Ondansetron HCl (Zofran Inj) 4 mg NOW STAT IV 03/29/17 20:18 03/29/17 20:20 DC 03/29/17 20:24 4 MG ECG Indication: other (hypokalemia) Rhythm: normal sinus Findings: peaked T-waves, prolonged QT ED Course The patient was evaluated. Patient's EMR medication list were reviewed. IV access was obtained. CBC and differential, renal profile, LFTs and lipase levels were ordered. Urinalysis was ordered. Stool for C. difficile was ordered. The patient was offered pain medication but declined. The patient was given a GI cocktail. The patient didn't not get any relief with the GI cocktail therefore she was given Zofran 4 mg IV push. She was also given Tylenol 1 g for pain since she was now requesting something "to take the edge off". She did not one any narcotics. Urinalysis was negative. Labs are reviewed and potassium was critically low at 2.1. I reviewed the patient's chart she has had hypokalemia in the past. EKG was ordered and reviewed with prolonged QT and slightly peaked T waves as compared to EKG of 03/19/2017. Urinalysis was negative. The patient's case was discussed with Dr. Villegas who agree with treatment plan. The patient was given 20 mEq of potassium IV. CT of the abdomen and pelvis with IV contrast was ordered and Dr. Vazquez was consulted for admission. Medical Decision See patient has a history of GERD I first gave the patient a GI cocktail to see if this resolved her symptoms. Differential diagnosis would include viral gastroenteritis, C. difficile, bowel obstruction, peptic ulcer disease. The patient has severe hypokalemia and therefore the patient will be admitted for potassium replacement and further evaluation. Impression Primary Impression: Hypokalemia Additional Impressions: Epigastric pain Nausea and vomiting Diarrhea Departure Information Dispostion Being Evaluated By Hospitalist Condition GOOD Referrals Caroline Roth, C.R.N.P. (PCP) Patient Instructions My [facility] Problem Qualifiers Additional Impressions: Nausea and vomiting Vomiting type: unspecified Vomiting Intractability: unspecified Qualified Codes: R11.2 - Nausea with vomiting, unspecified Diarrhea Diarrhea type: unspecified type Qualified Codes: R19.7 - Diarrhea, unspecified
[2017-03-29] MEDS ORDERED: MAGNESIUM HYDROXIDE SUSP 30 ML UDC PO PRN (21:30)
[2017-03-29] MEDS ORDERED: ONDANSETRON INJ 2 MG/ML 2 ML VIAL IV PRN (21:30)
[2017-03-29] MEDS ORDERED: ALUMINUM/MAGNESIUM/SIMETH (MAALOX MAX) 30 ML UDC PO PRN (21:30)
[2017-03-29] MEDS ORDERED: ACETAMINOPHEN 325 MG TAB PO PRN ×2 (21:30)
[2017-03-29] MEDS ORDERED: ZOLPIDEM TARTRATE 5 MG TAB PO PRN (21:30)
--- NOTE | 2017-03-29 21:40 | DIAGNOSTIC IMAGING REPORT ---
ABD/PELVIS IV CONTRAST ONLY CT DOSE: 268.99 mGy.cm HISTORY: Pain. Nausea. epigastric pain/nausea/vomiting/low potassium TECHNIQUE: Multiaxial CT images of the abdomen and pelvis were performed following the use of intravenous contrast. A dose lowering technique was utilized adhering to the principles of ALARA. COMPARISON STUDY: 03/19/2017 FINDINGS: Lung bases remain clear. Liver spleen and pancreas are unremarkable. Left kidney enhances uniformly. Right kidney demonstrates diffuse heterogeneity of enhancement with mild enlargement as compared to the left kidney. This differential, however is diminished as compared to the prior study. No evidence for an obstructing urinary tract calculus. Significant increase in fecal load throughout the colon compared to the prior exam. Bowel pattern remains nonobstructive. Bladder is midline. No free fluid within the pelvic cul-de-sac. Findings consistent with old operative changes to the right femoral shaft. IMPRESSION: 1. Findings highly suggestive of slowly resolving right renal pyelonephritis. 2. Persistent postcontrast heterogeneous enhancement, although overall size of the kidney has diminished compared to the prior exam. 3. Increased fecal load throughout the colon consistent with fecal stasis as compared to the prior study. The above report was generated using voice recognition software. It may contain grammatical, syntax or spelling errors. Electronically signed by: Garett Zarate M.D. 03/29/2017 9:38 PM Dictated Date/Time: 03/29/2017 9:35 PM
[2017-03-29] MEDS: POTASSIUM CHLR 10 MEQ / WTR 10 MEQ in PREMIXED WATER 100 ML IV SCH ×2 (22:11→23:27)
[2017-03-29] MEDS: NSS + 20MEQ KCL 1000ML 1,000 ML IV SCH (22:11)
--- NOTE | 2017-03-29 22:36 | History and Physical ---
History & Physical Date & Time of Service: Mar 29, 2017 at 22:05 Chief Complaint: Gastric Pain Primary Care Physician: Caroline Roth, C.R.N.PViky History of Present Illness Source: patient 46 y/o F Hx eating disorder, DVT, recent R pyelonephritis. Pt states she has had intermittent nausea, vomiting, diarrhea and RUQ pain over the past few days which she attributes to a course of Cipro. Initial CT abdomen was notable only for improving R pyelonephritis although her gallbladder was not visualized. Labs revealed severe hypokalemia in addition to an elevated AP and thrombocytosis. Her UA is presently negative. She denies fevers, rigors or back/flank pain. It is noted on review of records that the pt has previously abused Lasix and Metformin, although it is unclear if this has contributed to her hypokalemia. She denies any current superfluous medication use. It is also noted that the abdominal CT is consistent with widespread fecal retention which may contradict complaints of diarrhea. Past Medical/Surgical History Medical Problems: (1) ANEMIA NOS Status: Chronic (2) IRON DEFIC ANEMIA NOS Status: Chronic (3) PERSONAL HISTORY OF PEPTIC ULCER DISEASE Status: Chronic Family History Diabetes mellitus Hypertension Social History Smoking Status: Never Smoker Drug Use: none Marital Status: in relationship Housing status: lives with family Occupational Status: employed Immunizations History of Influenza Vaccine: No History of Tetanus Vaccine?: No History of Pneumococcal: No Multi-Drug Resistant Organisms History of MDRO: No Allergies Coded Allergies: No Known Allergies (Unverified , 05/18/16) Home Medications Scheduled Ciprofloxacin (Ciprofloxacin HCl), 1 TAB PO Q12 Esomeprazole Magnesium (Nexium), 20 MG PO DAILY Fluoxetine Hcl (Fluoxetine Hcl), 60 MG PO DAILY Ondasetron Odt (Zofran Odt), 4 MG SL Q12 Scheduled PRN Acetaminophen Tab (Tylenol), 325 MG PO Q4H PRN for Pain Review of Systems Constitutional: No fever, No chills, No sweats Eyes: No worsening of vision ENT: No hearing loss, No unusual epistaxis, No nasal symptoms Respiratory: No cough, No sputum, No wheezing Cardiovascular: No chest pain, No orthopnea, No PND Abdomen: + pain, + nausea, + vomiting, + diarrhea Musculoskeletal: No joint pain Genitourinary - Female: No dysuria, No urinary frequency, No urinary urgency Neurologic: No memory loss, No paralysis, No weakness Psychiatric: No depression symptoms Endocrine: No fatigue Hematologic / Lymphatic: No abnormal bleeding/bruising Integumentary: No rash Allergic / Immunologic: No environmental allergies Physical Exam Vital Signs Date Time Temp Pulse Resp B/P (MAP) Pulse Ox O2 Delivery O2 Flow Rate FiO2 03/29/17 18:51 36.7 109 18 134/82 98 Room Air General Appearance: WD/WN, no apparent distress Head: normocephalic Eyes: normal inspection, PERRL, EOMI ENT: normal ENT inspection Neck: supple, no adenopathy, thyroid normal, no JVD Respiratory/Chest: chest non-tender, lungs clear Cardiovascular: regular rate, rhythm, no edema, no gallop, no JVD, no murmur, normal peripheral pulses Abdomen/GI: normal bowel sounds, non tender, soft Back: normal inspection, no CVA tenderness, no muscle spasm, normal range of motion Extremities/Musculoskelatal: normal inspection, no calf tenderness, normal capillary refill, no pedal edema, normal range of motion 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, no motor/sensory deficits, alert, normal mood/affect, normal reflexes, oriented x 3 Skin: normal color, warm/dry, no rash Diagnostics Laboratory Results Results Past 24 Hours Test 03/29/17 19:17 03/29/17 19:20 Range/Units White Blood Count 8.56 4.8-10.8 K/uL Red Blood Count 4.26 4.2-5.4 M/uL Hemoglobin 12.4 12.0-16.0 g/dL Hematocrit 37.7 37-47 % Mean Corpuscular Volume 88.5 80-100 fL Mean Corpuscular Hemoglobin 29.1 25-34 pg Mean Corpuscular Hemoglobin Concent 32.9 32-36 g/dl Platelet Count 643 130-400 K/uL Mean Platelet Volume 9.4 7.4-10.4 fL Neutrophils (%) (Auto) 73.3 % Lymphocytes (%) (Auto) 19.9 % Monocytes (%) (Auto) 5.7 % Eosinophils (%) (Auto) 0.4 % Basophils (%) (Auto) 0.5 % Neutrophils # (Auto) 6.28 1.4-6.5 K/uL Lymphocytes # (Auto) 1.70 1.2-3.4 K/uL Monocytes # (Auto) 0.49 0.11-0.59 K/uL Eosinophils # (Auto) 0.03 0-0.5 K/uL Basophils # (Auto) 0.04 0-0.2 K/uL RDW Standard Deviation 54.9 36.4-46.3 fL RDW Coefficient of Variation 17.0 11.5-14.5 % Immature Granulocyte % (Auto) 0.2 % Immature Granulocyte # (Auto) 0.02 0.00-0.02 K/uL Sodium Level 133 136-145 mmol/L Potassium Level 2.1 3.5-5.1 mmol/L Chloride Level 91 98-107 mmol/L Carbon Dioxide Level 28 21-32 mmol/L Anion Gap 15.0 3-11 mmol/L Blood Urea Nitrogen 24 7-18 mg/dl Creatinine 1.13 0.60-1.20 mg/dl Est Creatinine Clear Calc Drug Dose 55.7 ml/min Estimated GFR () 67.5 Estimated GFR (Non- 58.2 BUN/Creatinine Ratio 21.2 10-20 Random Glucose 140 70-99 mg/dl Calcium Level 9.0 8.5-10.1 mg/dl Total Bilirubin 0.3 0.2-1 mg/dl Direct Bilirubin < 0.1 0-0.2 mg/dl Aspartate Amino Transf (AST/SGOT) 21 15-37 U/L Alanine Aminotransferase (ALT/SGPT) 38 12-78 U/L Alkaline Phosphatase 187 45-117 U/L Total Protein 8.8 6.4-8.2 gm/dl Albumin 3.9 3.4-5.0 gm/dl Lipase 199 73-393 U/L Urine Color YELLOW Urine Appearance CLEAR CLEAR Urine pH 6.5 4.5-7.5 Urine Specific [place] 1.010 1.000-1.030 Urine Protein NEG NEG Urine Glucose (UA) NEG NEG Urine Ketones NEG NEG Urine Occult Blood TRACE NEG Urine Nitrite NEG NEG Urine Bilirubin NEG NEG Urine Urobilinogen NEG NEG Urine Leukocyte Esterase NEG NEG Urine RBC 0-4 0-4 /hpf Urine WBC 1-5 0-5 /hpf Urine Epithelial Cells 10-20 0-5 /lpf Urine Bacteria NEG NEG Microbiology Results 03/29/17 C.difficile Toxin B Gene (PCR), Received Pending Diagnostic Radiology 1. Findings highly suggestive of slowly resolving right renal pyelonephritis. 2. Persistent postcontrast heterogeneous enhancement, although overall size of the kidney has diminished compared to the prior exam. 3. Increased fecal load throughout the colon consistent with fecal stasis as compared to the prior study. EKG Sinus - prolonged QT 628 Impression Assessment and Plan 46 y/o F Hx eating disorder, DVT, recent R pyelonephritis. Pt states she has had intermittent nausea, vomiting, diarrhea and RUQ pain over the past few days which she attributes to a course of Cipro. Initial CT abdomen was notable only for improving R pyelonephritis although her gallbladder was not visualized. Labs revealed severe hypokalemia in addition to an elevated AP and thrombocytosis. Her UA is presently negative. She denies fevers, rigors or back/flank pain. 1) Hypokalemia - likely due to vomiting and dehydration. Denies diuretic use. EKG shows a markedly prolonged QT so that she will be assigned to telemetry overnight. K and Mg provided - repeat BMP pending. 2) Reg her RUQ pain and alk phos elevation - CT was equivocal - we will obtain an RUQ ultrasound and repeat LFTs AM. 3) Thrombocytosis - cause not clear - will repeat CBC AM. 4) Eating disorder - would watch for induced vomiting - pt placed on a clear liquid diet overnight. 5) Pyelonephritis - resolving - con Cipro Full code - Heparin prophylaxis Total time for this admit including review of labs, meds, imaging - discussion with pt and ER attending - 33 min Level of Care Telemetry Resuscitation Status FULL RESUSCITATION VTE Prophylaxis VTE Risk Assessment Done? Y/N: Yes Risk Level: Low Given or contraindicated: Unfractionated heparin SQ
[2017-03-29 23:14] VITALS: BP 118/84; PULSE 72; TEMP 36.8; O2SAT 99; Ht 165.1 cm; Wt 60.6 kg
[2017-03-29] MEDS ORDERED: CIPROFLOXACIN 500 MG TAB PO SCH (23:15)
[2017-03-29] MEDS: MAGNESIUM SULFATE 1GM / D5W 1 GM in PREMIXED IN D5W 100 ML IV SCH (23:37)
[2017-03-30] VITALS (7 sets, daily range): BP systolic 103–119; BP diastolic 67–76; PULSE 68–81; TEMP 36.5–36.9; O2SAT 97–100
[2017-03-30] MEDS: POTASSIUM CHLR 10 MEQ / WTR 10 MEQ in PREMIXED WATER 100 ML IV SCH ×6 (00:14→10:29)
[2017-03-30] MEDS: MAGNESIUM SULFATE 1GM / D5W 1 GM in PREMIXED IN D5W 100 ML IV SCH (00:42)
[2017-03-30] MEDS ORDERED: IV FLUIDS COMPLETED PRN (00:45)
[2017-03-30 02:10] LABS: PROTHROMBIN TIME (PATIENT) 10.9 SECONDS (9.0-12.0)
[2017-03-30 06:24] LABS: HEMATOCRIT 33.7 % (37-47); MEAN CELL VOLUME 87.8 fL (80-100); MEAN CORPUSCULAR HEMOGLOBIN 28.1 pg (25-34); MEAN PLATELET VOLUME 9.4 fL (7.4-10.4); PLATELET COUNT 576 K/uL (130-400); RED BLOOD COUNT 3.84 M/uL (4.2-5.4); WHITE BLOOD COUNT 5.75 K/uL (4.8-10.8)
[2017-03-30 06:55] LABS: ALT/SGPT 31 U/L (12-78); AST/SGOT 16 U/L (15-37); BLOOD UREA NITROGEN 16 mg/dl (7-18); CALCIUM 7.4 mg/dl (8.5-10.1); CARBON DIOXIDE 31 mmol/L (21-32); CHLORIDE 96 mmol/L (98-107); CREATININE 1.02 mg/dl (0.60-1.20); GLUCOSE 84 mg/dl (70-99); MAGNESIUM 2.8 mg/dl (1.8-2.4); POTASSIUM 2.6 mmol/L (3.5-5.1); SODIUM 135 mmol/L (136-145)
[2017-03-30 06:59] LABS: ALKALINE PHOSPHATASE 147 U/L (45-117)
[2017-03-30] MEDS: NSS + 20MEQ KCL 1000ML 1,000 ML IV SCH (07:02)
[2017-03-30] MEDS: HEPARIN SOD 5000 UNIT/0.5 ML CARP SQ SCH ×2 (08:24→20:44)
[2017-03-30] MEDS ORDERED: POTASSIUM CHLORIDE 10 MEQ TABCR PO ONE ×4 (09:00→17:15)
[2017-03-30] MEDS: LACTOBACILLUS ACIDOPHILUS (FLORANEX) TAB PO SCH ×3 (09:30→16:56)
[2017-03-30] MEDS: SULFAMETHOXAZOLE/TRIMETHOPRIM DS 800/160MG TAB PO SCH (11:01)
[2017-03-30] MEDS: PANTOprazole SOD 40 MG TAB PO SCH (11:02)
[2017-03-30] MEDS: FLUOXETINE HCL 20 MG CAP PO SCH (11:02)
--- NOTE | 2017-03-30 11:32 | DIAGNOSTIC IMAGING REPORT ---
BILIARY ULTRASOUND CLINICAL HISTORY: cholecystitis COMPARISON STUDY: CT scan dated 03/29/2017 FINDINGS: The pancreas appears sonographically normal. No hepatic masses are visualized. There is no right-sided hydronephrosis. No gallstones are visualized. There is no gallbladder wall thickening and no pericholecystic fluid. The common bile duct measures 5 mm. IMPRESSION: Normal biliary ultrasound. Electronically signed by: Shayne Pena M.D. 03/30/2017 11:31 AM Dictated Date/Time: 03/30/2017 11:29 AM
--- NOTE | 2017-03-30 15:28 | DIAGNOSTIC IMAGING REPORT ---
KUB CLINICAL HISTORY: vomiting, diarrhea COMPARISON STUDY: 09/15/2005 FINDINGS: Moderate increase in fecal load throughout the colon consistent with a component of fecal stasis. No obstructive characteristics. Osseous structures appear to be intact. Several pelvic vascular calcifications. Renal shadows are obscured by overlying bowel content. IMPRESSION: 1. Increased fecal load within the colon suggesting fecal stasis. 2. No abnormal calcifications within the urinary tracts within the limitations of overlying bowel content. 3. Nonobstructive bowel pattern. The above report was generated using voice recognition software. It may contain grammatical, syntax or spelling errors. Electronically signed by: Garett Zarate M.D. 03/30/2017 3:27 PM Dictated Date/Time: 03/30/2017 3:25 PM
[2017-03-30] MEDS ORDERED: BISACODYL 10 MG SUPP PR STA (16:37)
--- NOTE | 2017-03-30 17:02 | Hospitalist Progress Note ---
Hospitalist Progress Note Date of Service Mar 30, 2017. (Jocy Tucker .ELLIOTT) Subjective Pt evaluation today including: conversation w/ patient, physical exam, chart review, lab review, review of studies, review of inpatient medication list Voiding: no voiding problems Ms. Zamora is feeling better this morning. She has not vomited though she did have some nausea. She was able to eat her breakfast. She has not had any chest pain or palpitations, her EKG shows normalizing QTc. She continues to have diarrhea and some upper right quadrant pain. ROS Constitutional: no chills, aches, sweats or fever Respiratory: no sob,cough, sputum, or wheezing Cardiac: no chest pain, palpitations, edema, orthopnea or lightheadedness GI: see HPI : no dysuria or hesitancy Extremities: no joint pain or weakness Skin: no rash All Other Systems: Reviewed and Negative (Jocy Tucker CRNP) Medications Medications (Trade) Dose Ordered Sig/Andrei Route Start Time Stop Time Status Last Admin Dose Admin Lidocaine HCl (Viscous Lidocaine 2% Soln) 10 ml NOW STAT PO 03/29/17 19:01 03/29/17 19:03 DC 03/29/17 19:26 10 ML Al Hydroxide/Mg Hydroxide (Maalox Susp) 30 ml NOW STAT PO 03/29/17 19:01 03/29/17 19:03 DC 03/29/17 19:26 30 ML Acetaminophen (Tylenol Tab) 1,000 mg NOW STAT PO 03/29/17 20:18 03/29/17 20:20 DC 03/29/17 20:23 1,000 MG Ondansetron HCl (Zofran Inj) 4 mg NOW STAT IV 03/29/17 20:18 03/29/17 20:20 DC 03/29/17 20:24 4 MG Potassium Chloride 10 meq/ Prmx 100 ml @ 100 mls/hr Q1H IV 03/29/17 21:15 03/29/17 23:14 DC 03/29/17 23:27 100 MLS/HR Ciprofloxacin (Cipro Tab) 500 mg Q12 PO 03/29/17 23:15 03/30/17 09:08 DC 03/29/17 23:37 500 MG Pantoprazole Sodium (Protonix Tab) 40 mg DAILY PO 03/30/17 09:00 04/29/17 08:59 03/30/17 11:02 40 MG Fluoxetine HCl (Prozac Cap) 60 mg DAILY PO 03/30/17 09:00 04/29/17 08:59 03/30/17 11:02 60 MG Potassium Chloride/Sodium Chloride 1,000 ml @ 150 mls/hr Q6H40M IV 03/29/17 21:30 03/30/17 10:49 DC 03/30/17 07:02 150 MLS/HR Magnesium Sulfate 1 gm/Prmx 100 ml @ 100 mls/hr TODAY@0000,2300 IV 03/29/17 23:00 03/30/17 00:59 DC 03/30/17 00:42 100 MLS/HR Lactobacillus Acidophilus (Floranex Tab) 4 tab TIDM PO 03/30/17 08:00 04/29/17 07:59 03/30/17 12:03 4 TAB Heparin Sodium (Porcine) (Heparin Sq 5000 Unit/0.5ml) 5,000 unit Q12 SQ 03/30/17 09:00 04/29/17 08:59 03/30/17 08:24 5,000 UNIT Ondansetron HCl (Zofran Inj) 4 mg Q6H PRN IV 03/29/17 21:30 03/30/17 09:17 DC 03/30/17 04:25 4 MG Potassium Chloride 10 meq/ Prmx 100 ml @ 100 mls/hr Q1H IV 03/30/17 00:30 03/30/17 04:29 DC 03/30/17 03:09 100 MLS/HR Potassium Chloride (Klor-Con M10) 40 meq NOW ONCE PO 03/30/17 09:00 03/30/17 09:03 DC 03/30/17 09:30 40 MEQ Potassium Chloride 10 meq/ Prmx 100 ml @ 100 mls/hr Q1H IV 03/30/17 09:00 03/30/17 10:59 DC 03/30/17 10:29 100 MLS/HR Potassium Chloride (Klor-Con M10) 40 meq NOW ONCE PO 03/30/17 11:00 03/30/17 11:01 DC 03/30/17 11:03 40 MEQ Trimethoprim/ Sulfamethoxazole (Septra Ds 800/ 160MG Tab) 1 tab Q12 PO 03/30/17 21:00 04/03/17 20:59 03/30/17 11:01 1 TAB Potassium Chloride (Klor-Con M10) 40 meq NOW ONCE PO 03/30/17 14:15 03/30/17 14:16 DC 03/30/17 14:29 40 MEQ (Jocy Tucker CRNP) Objective Vital Signs Date Time Temp Pulse Resp B/P (MAP) Pulse Ox O2 Delivery O2 Flow Rate FiO2 03/30/17 16:00 Room Air 03/30/17 15:36 36.8 71 20 109/73 (85) 99 Room Air 03/30/17 12:00 Room Air 03/30/17 11:26 36.7 76 20 112/72 (85) 100 Room Air 03/30/17 08:00 Room Air 03/30/17 07:40 36.7 72 20 119/76 (90) 100 Room Air 03/30/17 04:57 36.7 68 17 103/67 (79) 97 Room Air 03/30/17 04:00 Room Air 03/30/17 00:30 36.5 70 18 114/76 (89) 100 Room Air 03/29/17 23:14 36.8 72 18 118/84 99 Room Air 03/29/17 22:14 73 18 116/81 98 Room Air 03/29/17 18:51 36.7 109 18 134/82 98 Room Air (Jocy Tucker CRNP) Physical Exam Notes: General: no distress Eyes: normal inspection, PERLL Respiratory: chest non tender, clear to auscultation, normal breath sounds, no respiratory distress, no accessory muscle use Cardiac: regular rate and rhythm, no rub or gallop, no murmur, no edema, no jvd GI/: active bowel sounds, tender upper right quadrant, soft, non distended Extremities: normal range of motion, normal strength, non tender Neuro/Psych: alert and oriented x 3, normal mood and affect Skin: normal color, dry (Jocy Tucker CRNP) Laboratory Results Last 24 Hours Test 03/29/17 19:17 03/29/17 19:20 03/30/17 06:01 03/30/17 12:55 White Blood Count 8.56 K/uL 5.75 K/uL Red Blood Count 4.26 M/uL 3.84 M/uL Hemoglobin 12.4 g/dL 10.8 g/dL Hematocrit 37.7 % 33.7 % Mean Corpuscular Volume 88.5 fL 87.8 fL Mean Corpuscular Hemoglobin 29.1 pg 28.1 pg Mean Corpuscular Hemoglobin Concent 32.9 g/dl 32.0 g/dl Platelet Count 643 K/uL 576 K/uL Mean Platelet Volume 9.4 fL 9.4 fL Neutrophils (%) (Auto) 73.3 % Lymphocytes (%) (Auto) 19.9 % Monocytes (%) (Auto) 5.7 % Eosinophils (%) (Auto) 0.4 % Basophils (%) (Auto) 0.5 % Neutrophils # (Auto) 6.28 K/uL Lymphocytes # (Auto) 1.70 K/uL Monocytes # (Auto) 0.49 K/uL Eosinophils # (Auto) 0.03 K/uL Basophils # (Auto) 0.04 K/uL RDW Standard Deviation 54.9 fL 54.7 fL RDW Coefficient of Variation 17.0 % 17.0 % Immature Granulocyte % (Auto) 0.2 % Immature Granulocyte # (Auto) 0.02 K/uL Prothrombin Time 10.9 SECONDS Prothromb Time International Ratio 1.0 Sodium Level 133 mmol/L 135 mmol/L Potassium Level 2.1 mmol/L 2.6 mmol/L 3.1 mmol/L Chloride Level 91 mmol/L 96 mmol/L Carbon Dioxide Level 28 mmol/L 31 mmol/L Anion Gap 15.0 mmol/L 8.0 mmol/L Blood Urea Nitrogen 24 mg/dl 16 mg/dl Creatinine 1.13 mg/dl 1.02 mg/dl Est Creatinine Clear Calc Drug Dose 55.7 ml/min 60.4 ml/min Estimated GFR () 67.5 76.4 Estimated GFR (Non- 58.2 65.9 BUN/Creatinine Ratio 21.2 16.0 Random Glucose 140 mg/dl 84 mg/dl Calcium Level 9.0 mg/dl 7.4 mg/dl Total Bilirubin 0.3 mg/dl 0.4 mg/dl Direct Bilirubin < 0.1 mg/dl < 0.1 mg/dl Aspartate Amino Transf (AST/SGOT) 21 U/L 16 U/L Alanine Aminotransferase (ALT/SGPT) 38 U/L 31 U/L Alkaline Phosphatase 187 U/L 147 U/L Total Protein 8.8 gm/dl 7.1 gm/dl Albumin 3.9 gm/dl 3.1 gm/dl Lipase 199 U/L Urine Color YELLOW Urine Appearance CLEAR Urine pH 6.5 Urine Specific Nabb 1.010 Urine Protein NEG Urine Glucose (UA) NEG Urine Ketones NEG Urine Occult Blood TRACE Urine Nitrite NEG Urine Bilirubin NEG Urine Urobilinogen NEG Urine Leukocyte Esterase NEG Urine RBC 0-4 /hpf Urine WBC 1-5 /hpf Urine Epithelial Cells 10-20 /lpf Urine Bacteria NEG Magnesium Level 2.8 mg/dl (Jocy Tucker, ELLIOTT) Assessment and Plan Ms. Zamora is a 46 year old woman here for hypokalemia, vomiting and abdominal pain following pyelonephritis earlier in the month and treatment with Cipro Hypokalemia - likely due to vomiting - no vomiting today, able to tolerate low fat/low fiber diet - repleated - prp in am Vomiting/diarrhea - gallbladder US normal - KUB showed increased fecal load and fecal stasis - colace bid and dulcolax suppository QT prolongation - QTc below 500 today, initially 643 - changed from Cipro to Bactrim - Fluoxetine maintained for now - Ondansetron discontinued Pyelonephritis - Cipro changed to Bactrim Thrombocytosis - unknown etiology - cbc in am DVT prophylaxis - heparin subq Full code (Jocy Tucker CRNP) Attending Attestation: Pt seen/examined, chart reviewed, care plan d/w ELLIOTT Tucker. I agree w/ the chavez components of her documentation. Pt overall feeling better but still with abdominal discomfort. Dulcolax suppos ordered by Ms. Tucker did produce "moderate" results but still with discomfort. Can't understand how "she is constipated." No further nausea/emesis. VSS no fever gen - NAD mouth - MMM heart - RRR lungs - CTA b/l abd - soft, mild tenderness epigastric area, BS+, slightly distended; b/l flanks w/o tenderness ext - no edema A/P: 1. recent right-sided pyelonephritis - clinically resolved; finish abx; agree w / change to bactrim 2. severe hypokalemia - due to vomiting? eating disorder? other? replete, BMP am 3. severe constipation - agree with management by Ms. Tucker; also added miralax x 3 doses tonight; then would resume miralax "prep" for bowel cleanse following "clean-out" would continue on bowel maintenance 4. question gastritis - would add h2 talib or PPI 5. prolonged QTc 2nd to #2 - improving 6. h/o Fe def - recheck ferritin in am anticipate d/c tomorrow Homer BAKER MD (Akash Baker MD)
[2017-03-30] MEDS: POLYETHYLENE (MIRALAX) 17 GM PACK PO SCH ×3 (20:09→21:52)
[2017-03-30] MEDS: DOCUSATE SODIUM 100 MG CAP PO SCH (20:42)
[2017-03-31 04:13] VITALS: BP 104/65; PULSE 71; TEMP 36.8; O2SAT 95
[2017-03-31 06:49] LABS: BASO % 0.8 %; BASO ABS # 0.04 K/uL (0-0.2); COMPLETE YES; EOS % 0.9 %; HEMATOCRIT 30.7 % (37-47); IG% 0.2 %; LYMPH % 38.1 %; LYMPH ABS # 2.03 K/uL (1.2-3.4); MEAN CELL VOLUME 91.6 fL (80-100); MEAN CORPUSCULAR HEMOGLOBIN 28.4 pg (25-34); MEAN CORPUSCULAR HGB CONC 30.9 g/dl (32-36); MEAN PLATELET VOLUME 9.4 fL (7.4-10.4); MONO % 6.8 %; NEUT % 53.2 %; PLATELET COUNT 387 K/uL (130-400); RED BLOOD COUNT 3.35 M/uL (4.2-5.4); WHITE BLOOD COUNT 5.33 K/uL (4.8-10.8)
[2017-03-31 07:24] LABS: CALCIUM 8.4 mg/dl (8.5-10.1); CREATININE 1.11 mg/dl (0.60-1.20); POTASSIUM 4.5 mmol/L (3.5-5.1)
[2017-03-31 07:30] LABS: FERRITIN 44.9 ng/ml (8.0-388.0)
[2017-03-31 08:00] VITALS: BP 102/70; PULSE 75; TEMP 36.8; O2SAT 95
[2017-03-31] MEDS: SULFAMETHOXAZOLE/TRIMETHOPRIM DS 800/160MG TAB PO SCH (09:05)
[2017-03-31] MEDS: DOCUSATE SODIUM 100 MG CAP PO SCH (09:05)
[2017-03-31] MEDS: FLUOXETINE HCL 20 MG CAP PO SCH (09:05)
[2017-03-31] MEDS: PANTOprazole SOD 40 MG TAB PO SCH (09:05)
[2017-03-31] MEDS: LACTOBACILLUS ACIDOPHILUS (FLORANEX) TAB PO SCH ×2 (09:06→12:01)
[2017-03-31] MEDS: HEPARIN SOD 5000 UNIT/0.5 ML CARP SQ SCH (09:07)
[2017-03-31] MEDS: POLYETHYLENE (MIRALAX) 17 GM PACK PO PRN ×2 (09:21→12:01)
[2017-03-31] MEDS ORDERED: POLYETHYLENE (MIRALAX) 17 GM PACK PO ONE (10:30)
[2017-03-31 11:40] VITALS: BP 112/79; PULSE 75; TEMP 36.2; O2SAT 100
[2017-03-31] MEDS ORDERED: POLYETHYLENE (MIRALAX) 17 GM PACK PO PRN (12:00)
[2017-03-31] MEDS ORDERED: SULF-183 PO (14:45)
[2017-03-31] MEDS ORDERED: POLY335019 PO (14:45)
[2017-03-31] MEDS ORDERED: SENN-61 PO ×2 (14:45→14:50)
[2017-03-31] MEDS ORDERED: BISA10SU5 RE (14:45)
--- NOTE | 2017-03-31 14:48 | Discharge Instructions ---
Discharge Instructions Date of Service Mar 31, 2017. Admission Reason for Admission: Abdominal Pain, Hypokalemia Discharge Discharge Diagnosis / Problem: Hypokalemia, prolonged QT, constipation Discharge Goals Goal(s): Improve disease control, Diagnostic testing Activity Recommendations Activity Limitations: resume your previous activity . Current Hospital Diet Patient's current hospital diet: Low Fiber Diet, Low Fat Diet Discharge Diet Recommended Diet: Regular Diet Procedures Procedures Performed: KUB Abd CT Gallbladder US Pending Studies Studies pending at discharge: no Medical Emergencies . Who to Call and When: Medical Emergencies: If at any time you feel your situation is an emergency, please call 911 immediately. . Non-Emergent Contact Non-Emergency issues call your: Primary Care Provider Call Non-Emergent contact if: you have any medication questions . Past History Medical & Surgical History: (1) Prolonged QT interval (2) Hypokalemia (3) Constipation . "Provider Documentation" section prepared by Jocy Tucker. . VTE Core Measure Inpt VTE Proph given/why not?: Unfractionated heparin SQ
[2017-03-31 15:00] VITALS: BP 112/79; PULSE 75; TEMP 36.2; O2SAT 100
--- NOTE | 2017-03-31 16:02 | Discharge Summary ---
Discharge Summary Date of Service Mar 31, 2017. (Jocy Tucker CRNP) Discharge Summary Admission Date: Mar 30, 2017 at 10:26 Discharge Date: Mar 31, 2017 Discharge Disposition: Home Principal Diagnosis: hypokalemia, qt prolongation, constipation Immunizations: Have You Had Influenza Vaccine: No History of Tetanus Vaccine?: No History of Pneumococcal: No Procedures: KUB IMPRESSION: 1. Increased fecal load within the colon suggesting fecal stasis. 2. No abnormal calcifications within the urinary tracts within the limitations of overlying bowel content. 3. Nonobstructive bowel pattern. Gallbladder US IMPRESSION: Normal biliary ultrasound. Abd pelvis CT IMPRESSION: 1. Findings highly suggestive of slowly resolving right renal pyelonephritis. 2. Persistent postcontrast heterogeneous enhancement, although overall size of the kidney has diminished compared to the prior exam. 3. Increased fecal load throughout the colon consistent with fecal stasis as compared to the prior study. (Jocy Tucker CRNP) Problems/Secondary Diagnoses: thrombocytosis - resolved; likely was reactive recent right-sided pyelonephritis eating disorder h/o DVT iron deficiency (Akash Baker MD) Medication Reconciliation New Medications: Bisacodyl (Bisacodyl) 10 Mg Sup 1 SUPP RE DAILY PRN for Constipation for 14 Days, #14 DOSE Polyethylene Glycol 3350 (Miralax) 1 Pow Pow 17 GM PO DAILY for Constipation for 14 Days, #238 GM Senna (Senokot) 8.6 Mg Tab 2 TAB PO DAILY for 14 Days, #28 TAB Sulfamethoxazole-Trimethoprim (Smz-Tmp Ds) 1 Tab Tab 1 TAB PO Q12 for 4 Days, #7 TAB Continued Medications: Acetaminophen Tab (Tylenol) 325 Mg Tab 325 MG PO Q4H PRN for Pain, TAB Esomeprazole Magnesium (Nexium) 20 Mg Capcr 20 MG PO DAILY, CAP Fluoxetine Hcl (Fluoxetine Hcl) 60 Mg Tab 60 MG PO DAILY Discontinued Medications: Ciprofloxacin (Ciprofloxacin HCl) 500 Mg Tab 1 TAB PO Q12 for 8 Days, #16 TAB Ondasetron Odt (Zofran Odt) 4 Mg Tab 4 MG SL Q12 for Nausea Discharge Exam ROS Constitutional: no chills, aches, sweats or fever Respiratory: no sob,cough, sputum, or wheezing Cardiac: no chest pain, palpitations, edema, orthopnea or lightheadedness GI: no abdominal pain, nausea, vomiting, diarrhea or constipation : no dysuria or hesitancy Extremities: no joint pain or weakness Skin: no rash Exam General: no distress Eyes: normal inspection, PERLL Respiratory: chest non tender, clear to auscultation, normal breath sounds, no respiratory distress, no accessory muscle use Cardiac: regular rate and rhythm, no rub or gallop, no murmur, no edema, no jvd GI/: active bowel sounds, no abd pain or tenderness, soft, non distended Extremities: normal range of motion, normal strength, non tender Neuro/Psych: alert and oriented x 3, normal mood and affect Skin: normal color, dry (Jocy Tucker CRNP) Hospital Course 46 y/o F Hx eating disorder, DVT, recent R pyelonephritis. Pt presented with intermittent nausea, vomiting, diarrhea and RUQ pain over a few days Initial CT abdomen was notable only for improving R pyelonephritis for which she was taking Cipro. Labs revealed severe hypokalemia of 2.1 in addition to an elevated AP and thrombocytosis. It is noted on review of records that the pt has previously abused Lasix and Metformin, although it is unclear if this has contributed to her hypokalemia. She denies any current superfluous medication use. It is also noted that the abdominal CT is consistent with widespread fecal retention which may contradict complaints of diarrhea. Hypokalemia - likely due to vomiting - no further vomiting after first day, tolerated advanced diet - repleated - resolved Vomiting/diarrhea - gallbladder US normal - KUB showed increased fecal load and fecal stasis - colace bid and dulcolax suppository, miralax - Had a small bowel movement today - Senna, biscodyl suppository and miralax for home QT prolongation - QTc below 500 today, initially 643 upon presentation - changed from Cipro to Bactrim to avoid contributing to QT prolongation - Fluoxetine maintained for now - Ondansetron discontinued Pyelonephritis - Cipro changed to Bactrim - abx completed 04/03 Thrombocytosis - unknown etiology - may need work up outpatient Total Time Spent: Less than 30 minutes This includes examination of the patient, discharge planning, medication reconciliation, and communication with other providers. (Jocy Tucker CRNP) Attending Attestation: Unfortunately the patient was discharged prior to me completing a physical exam on her discharge date. However, I otherwise agree with the plan of care as outlined by ELLIOTT Tucker in this discharge summary. 46yo female admitted recently for right-sided pyelonephritis who presented with abdominal pain, vomiting, and severe hypokalemia. Hypokalemia was corrected, vomiting resolved, and her abd pain was felt to be due to severe constipation as seen on CT and KUB x-ray. She had evidence of severe QTc prolongation in the setting of her severe hypokalemia. This resolved with Rx of her hypokalemia. She was advised to stay on a bowel regimen after discharge to prevent/treat the constipation. Her cipro was changed to bactrim due to cipro's propensity for QTc prolongation. Follow-up with her PCP within 1 week was advised at discharge. Akash Baker MD (Akash Baker MD) Discharge Instructions Please refer to the electronic Patient Visit Report (Discharge Instructions) for additional information. (Jocy Tucker CRNP) Follow-Up Caroline GALLAGHER on WednesdayApril 07 at 11:30 am. (Jocy Tucker CRNP) Additional Copies To Caroline Roth C.R.N.P.
== END 2017-03-31 15:11 | disposition home or self-care (01) | DRG 641 ==
LOC: C.EDB 18:49 → C.MED 21:31 → ENRESERV 21:54 → OBSVTOIN 03-30 10:26
PROVIDERS: ADMIT Internal Medicine; ATTEND Internal Medicine
DX: E87.6 Hypokalemia (principal); N12 Tubulo-interstitial nephritis, not specified as acute or chronic; I45.81 Long QT syndrome; D47.3 Essential (hemorrhagic) thrombocythemia; R74.8 Abnormal levels of other serum enzymes; R10.11 Right upper quadrant pain; R11.2 Nausea with vomiting, unspecified; K59.00 Constipation, unspecified; K21.9 Gastro-esophageal reflux disease without esophagitis; F50.9 Eating disorder, unspecified; Z86.718 Personal history of other venous thrombosis and embolism; Z79.899 Other long term (current) drug therapy

== ENCOUNTER 2020-06-29 16:31 | Observation (INO) ==
--- OUTSIDE RECORDS SUMMARY | 2020-06-29 16:34 | External Medical Summary | Continuity of Care Document ---
:1970 Author Name Ronald Miller Address Unavailable Unavailable , Care Team Providers Name Role Phone Unavailable Unavailable Unavailable Gonzalez GALLAGHER Unavailable [email or web address] [place] Miller, E Unavailable Unavailable Unavailable Unavailable Unavailable Problems Dysuria (788.1) (R30.0) Malnutrition (263.9) (E46) Venous thrombosis (453.9) (I82.90) Fatigue (780.79) (R53.83) Anemia (285.9) (D64.9) History of duodenal ulcer (V12.79) (Z87.19) Status: Resolved Generalized anxiety disorder (300.02) (F41.1) Gastritis (535.50) (K29.70) Misuse of prescription only drugs (305.90) (F19.90) Drug abuse and dependence (304.90) (F19.20) Hyperthyroidism (242.90) (E05.90) 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 Start: 28-Sep-2016 Refills: 0 Procedures History of Closed Treatment Of Fracture Of Femoral Head Status: Completed Immunizations Tdap (Adacel) On: 19-Aug-2015 9:12 Lot #: [id number], [employer] PA[employer]UR Family History Unknown Family Member Family history of Hypertension (V17.49) Status: Active Comments: Family History Social History - Smoking Status Never smoked tobacco Plan of Treatment Planned Observations Planned Goals not documented Results No Known Results Results not documented
--- OUTSIDE RECORDS SUMMARY | 2020-06-29 16:34 | External Medical Summary | Continuity of Care Document ---
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) Drug abuse and dependence (304.90) (F19.20) Misuse of prescription only drugs (305.90) (F19.90) Gastritis (535.50) (K29.70) Dysuria (788.1) (R30.0) Nausea (787.02) (R11.0) Foot pain (729.5) (M79.673) Iron deficiency anemia (280.9) (D50.9) Nephrolithiasis (592.0) (N20.0) Thyrotoxicosis (242.90) (E05.90) Hyperthyroidism (242.90) (E05.90) Fatigue (780.79) (R53.83) Venous thrombosis (453.9) (I82.90) Malnutrition (263.9) (E46) Allergies and Adverse Reactions No Known Drug [...] Tdap (Adacel) On: 19-Aug-2015 9:12 Lot #: [id number], [employer]FI PA[employer]UR Family History Unknown Family Member Family history of Hypertension (V17.49) Status: Active Comments: Family History Social History - Smoking Status Never smoked tobacco Plan of Treatment Planned Observations Planned Goals not documented Results No Known Results Results not documented
[2020-06-29] MEDS ORDERED: NITROGLYCERIN SL 0.4 MG/TAB TAB SL PRN (16:47)
[2020-06-29] MEDS ORDERED: NITROGLYCERIN SL 0.4 MG/TAB TAB ONE (16:49)
--- NOTE | 2020-06-29 17:02 | Emergency Department Note ---
History of Present Illness General Chief complaint: Chest Pain Stated complaint: CHEST PAIN, PAIN DOWN L ARM, SOB, NAUSEA Time Seen by Provider: 06/29/20 16:38 Source: patient History of Present Illness Provider complaint: Chest pain Onset (ago): hour(s) Location: chest and left Radiation: extremity (Left arm) Pain Consistency: + constant Maximum Pain Intensity: 7 Quality: + dull Exacerbated By: + none Associated symptoms: + headaches, + nausea/vomiting and + shortness of breath; no cough, no diaphoresis and no fever/chills This is a 50-year-old female who presents with chest pain starting approximately 1 PM today. Patient states that she woke up this morning at 11 AM. She felt like she had a hangover because she drank alcohol last night to celebrate her son's birthday. She does have a history of headaches and states that this is not the worst headache of her life and she had a similar headache when she was diagnosed with COVID-19 in April. She does state that she gets frequent headaches and this 1 is not unusual. She states the chest pain is located in the left side of her chest. It radiates down the left arm. She rates it a 7 o ut of 10 in severity. She describes it as dull. No modifying factors. It is associated with vomiting and shortness of breath. She denies cough, diaphoresis, fever, abdominal pain, diarrhea or urinary symptoms. She denies any leg swelling or pain. She denies any recent immobilization or travel. She does state that when she had problems with her eating disorders in 2014 she developed a clot in the right arm. She did have a hypercoagulable work-up which she believes was negative. She did see a guide rail cleaner. She is not on blood thinners currently. She denies having a clot in her chest. She does not smoke but does state that she has a strong family history of heart disease with some u ncles dying in her 40s. She has an aunt who in her 60s just recently of a heart attack. She denies any medical issues other than her prior eating disorder. She does mention that she did feel a sense of impending doom earlier today. Home Medications Medication Instructions Recorded Confirmed Type No Known Home Medications 06/29/20 06/29/20 History Allergies Allergy/AdvReac Type Severity Reaction Status Date / Time No Known Allergies Allergy Verified 06/29/20 18:18 Past Med/Surg History Medical History DVT (deep vein thrombosis) in Eating disorder Family History Aunt Coronary heart disease Uncle Coronary heart disease Social History Smoking Status: Never smoker Preferred Language: Spanish Feels Safe at Home: Yes Review of Systems See HPI for pertinent positives & negatives. and A total of 10 systems reviewed and were otherwise negative Physical Exam Vital Signs Vital Signs - 24 hr 06/29/20 16:33 06/29/20 16:50 06/29/20 16:52 Temperature 36.1 C L Temperature Source Temporal Artery Scan Pulse Rate 126 H 115 H 120 H Pulse Rate [Apical] Pulse Rate from SpO2 Sensor 114 H 121 H Respiratory Rate 20 22 18 Respiratory Effort / Characteristics Non-Labored Spontaneous Respiratory Depth Normal Respiratory Pattern Regular Blood Pressure 149/93 H 139/88 Blood Pressure [Left Arm] Blood Pressure Mean 111 105 Blood Pressure Mean [Left Arm] Pulse Oximetry 98 98 99 Oxygen Delivery Method Room Air Sepsis Recent Fever Within 48 Hours No Sepsis New/Unexplained Change in Mental Status No Sepsis Action Taken by Nursing No Action Required 06/29/20 16:55 06/29/20 17:12 06/29/20 17:14 Temperature Temperature Source Pulse Rate 114 H 95 H 92 H Pulse Rate [Apical] Pulse Rate from SpO2 Sensor 115 H 96 H 89 Respiratory Rate 26 H 20 15 Respiratory Effort / Characteristics Respiratory Depth Respiratory Pattern Blood Pressure 132/75 143/84 H Blood Pressure [Left Arm] Blood Pressure Mean 94 103 Blood Pressure Mean [Left Arm] Pulse Oximetry 96 99 100 Oxygen Delivery Method Sepsis Recent Fever Within 48 Hours Sepsis New/Unexplained Change in Mental Status Sepsis Action Taken by Nursing 06/29/20 17:15 06/29/20 17:16 06/29/20 17:20 Temperature Temperature Source Pulse Rate 87 94 H 97 H Pulse Rate [Apical] Pulse Rate from SpO2 Sensor 85 95 H 97 H Respiratory Rate 15 20 16 Respiratory Effort / Characteristics Respiratory Depth Respiratory Pattern Blood Pressure 143/88 H 136/79 Blood Pressure [Left Arm] Blood Pressure Mean 106 98 Blood Pressure Mean [Left Arm] Pulse Oximetry 99 100 98 Oxygen Delivery Method Sepsis Recent Fever Within 48 Hours Sepsis New/Unexplained Change in Mental Status Sepsis Action Taken by Nursing 06/29/20 17:25 06/29/20 17:30 06/29/20 17:31 Temperature Temperature Source Pulse Rate 94 H 104 H 99 H Pulse Rate [Apical] Pulse Rate from SpO2 Sensor 94 H 107 H 98 H Respiratory Rate 16 22 13 Respiratory Effort / Characteristics Respiratory Depth Respiratory Pattern Blood Pressure 123/82 121/88 Blood Pressure [Left Arm] Blood Pressure Mean 95 99 Blood Pressure Mean [Left Arm] Pulse Oximetry 97 98 98 Oxygen Delivery Method Sepsis Recent Fever Within 48 Hours Sepsis New/Unexplained Change in Mental Status Sepsis Action Taken by Nursing 06/29/20 17:35 06/29/20 17:40 06/29/20 17:45 Temperature Temperature Source Pulse Rate 81 84 81 Pulse Rate [Apical] Pulse Rate from SpO2 Sensor 84 85 83 Respiratory Rate 12 19 14 Respiratory Effort / Characteristics Respiratory Depth Respiratory Pattern Blood Pressure 123/80 122/80 117/87 Blood Pressure [Left Arm] Blood Pressure Mean 94 94 97 Blood Pressure Mean [Left Arm] Pulse Oximetry 97 97 98 Oxygen Delivery Method Sepsis Recent Fever Within 48 Hours Sepsis New/Unexplained Change in Mental Status Sepsis Action Taken by Nursing 06/29/20 17:46 06/29/20 17:50 06/29/20 17:55 Temperature Temperature Source Pulse Rate 86 90 86 Pulse Rate [Apical] Pulse Rate from SpO2 Sensor 84 91 H 81 Respiratory Rate 16 15 18 Respiratory Effort / Characteristics Respiratory Depth Respiratory Pattern Blood Pressure 128/78 129/82 Blood Pressure [Left Arm] Blood Pressure Mean 94 97 Blood Pressure Mean [Left Arm] Pulse Oximetry 97 99 99 Oxygen Delivery Method Sepsis Recent Fever Within 48 Hours Sepsis New/Unexplained Change in Mental Status Sepsis Action Taken by Nursing 06/29/20 17:58 06/29/20 18:00 06/29/20 18:01 Temperature Temperature Source Pulse Rate 83 88 Pulse Rate [Apical] 84 Pulse Rate from SpO2 Sensor 83 95 H Respiratory Rate 18 17 21 Respiratory Effort / Characteristics Respiratory Depth Respiratory Pattern Blood Pressure 119/85 Blood Pressure [Left Arm] 129/82 Blood Pressure Mean 96 Blood Pressure Mean [Left Arm] 97 Pulse Oximetry 99 98 100 Oxygen Delivery Method Room Air Sepsis Recent Fever Within 48 Hours Sepsis New/Unexplained Change in Mental Status Sepsis Action Taken by Nursing 06/29/20 18:05 06/29/20 18:10 06/29/20 18:15 Temperature Temperature Source Pulse Rate 90 82 78 Pulse Rate [Apical] Pulse Rate from SpO2 Sensor Respiratory Rate 23 14 16 Respiratory Effort / Characteristics Respiratory Depth Respiratory Pattern Blood Pressure 137/84 99/80 L 133/79 Blood Pressure [Left Arm] Blood Pressure Mean 101 86 97 Blood Pressure Mean [Left Arm] Pulse Oximetry Oxygen Delivery Method Sepsis Recent Fever Within 48 Hours Sepsis New/Unexplained Change in Mental Status Sepsis Action Taken by Nursing 06/29/20 18:16 06/29/20 18:20 Temperature Temperature Source Pulse Rate 86 82 Pulse Rate [Apical] Pulse Rate from SpO2 Sensor Respiratory Rate 16 18 Respiratory Effort / Characteristics Respiratory Depth Respiratory Pattern Blood Pressure 117/82 Blood Pressure [Left Arm] Blood Pressure Mean 93 Blood Pressure Mean [Left Arm] Pulse Oximetry Oxygen Delivery Method Sepsis Recent Fever Within 48 Hours Sepsis New/Unexplained Change in Mental Status Sepsis Action Taken by Nursing Constitutional: Vital signs reviewed. Eyes: Pupils are equal round reactive to light. Conjunctiva are noninjected. ENT: Pharynx is clear without erythema or exudate. Mucous membranes are moist. Neck supple without meningeal signs. Respiratory: Clear to auscultation bilaterally. Breath sounds are equal bi laterally. Cardiovascular: Tachycardic. Heart rate 106. Regular rhythm. GI: Soft, nondistended and nontender. Bowel sounds are present. Musculoskeletal: No peripheral edema. No lower extremity tenderness. Integumentary: No cyanosis. or jaundice. Neurologic: The patient is awake and alert. Cranial nerves II-XII are intact. Motor is 5 out of 5 all extremities. Sensation is intact to light touch all extremities. Normal speech. No pronator drift. No limb ataxia. Psychiatric: Very anxious. Course Administered Medications Nitroglycerin (Nitroglycerin Sl 0.4 Mg/Tab Tab) 0.4 mg SL UD PRN PRN Reason: Chest Pain Stop: 07/29/20 16:46 Last Admin: 06/29/20 17:17 Dose: 0.4 mg Documented by: [id number] Discontinued Medications Aspirin (Aspirin Chew 324 Mg) 162 mg PO NOW STA Stop: 06/29/20 17:32 Last Admin: 06/29/20 17:59 Dose: 162 mg Documented by: [id number] Famotidine (Famotidine 20mg/5ml Iv Push) Confirm Administered Dose 20 mg IV .Roam & Wander-MED ONE Stop: 06/29/20 18:57 Last Admin: 06/29/20 19:04 Dose: 20 mg Documented by: [id number] Potassium Chloride (K Noah / Wtr) 10 meq in 100 mls @ 100 mls/hr IV ONE ONE Stop: 06/29/20 18:24 Last Admin: 06/29/20 18:14 Dose: 100 mls/hr Documented by: [id number] Ioversol (Optiray 320 125ml) 120 ml IV ONCE ONE Stop: 06/29/20 17:07 Last Admin: 06/29/20 17:07 Dose: 120 ml Documented by: [id number] Nitroglycerin (Nitroglycerin Sl 0.4 Mg/Tab Tab) Confirm Administered Dose 0.4 mg .ROUTE .STK-MED ONE Stop: 06/29/20 16:50 Last Admin: 06/29/20 16:50 Dose: 0.4 mg Documented by: [id number] Nitroglycerin (Nitroglycerin 2% Ointment 30gm Tube) 0.5 inch EXT NOW ONE Stop: 06/29/20 17:32 Last Admin: 06/29/20 17:59 Dose: 0.5 inch Documented by: [id number] Potassium Chloride (Potassium Chloride 10 Meq Tabcr) 40 meq PO NOW STA Stop: 06/29/20 17:26 Last Admin: 06/29/20 17:59 Dose: 40 meq Documented by: [id number] Medical Decision Making Differential Diagnosis Unstable angina, [place], pulmonary embolism, panic disorder, intracranial hemorrhage, migraine headache Medical Records Attestation: I reviewed the patient's medical records. I did perform a limited focused review of portions of the patient's old chart on the electronic medical record. The patient has had no recent pertinent visits to this hospital. Home Medications Current Medication List: was personally reviewed by me Laboratory Data Attestation: I reviewed the patient's lab results. Result diagrams: 06/29/20 16:44 06/29/20 16:44 Lab Results 06/29/20 06/29/20 06/29/20 Range/Units 16:44 16:44 16:44 WBC 8.54 (4.8-10.8) K/uL RBC 4.73 (4.2-5.4) M/uL Hgb 15.9 (12.0-16.0) g/dL POC Hgb (12.0-16.0) g/dl Hct 45.2 (37-47) % POC Hct (37-47) % MCV 95.6 (80-100) fL MCH 33.6 (25-34) pg MCHC 35.2 (32-36) g/dL RDW Std Deviation 46.9 H (36.4-46.3) fL RDW Coeff of Soraya 13.4 (11.5-14.5) % Plt Count 305 (130-400) K/uL MPV 10.4 (7.4-10.4) fL Immature Gran % (Auto) 0.1 % Neut % (Auto) 84.3 % Lymph % (Auto) 12.2 % [place] % (Auto) 3.2 % Eos % (Auto) 0.1 % Baso % (Auto) 0.1 % Neut # (Auto) 7.20 H (1.4-6.5) K/uL Lymph # (Auto) 1.04 L (1.2-3.4) K/uL [place] # (Auto) 0.27 (0.11-0.59) K/uL Eos # (Auto) 0.01 (0-0.5) K/uL Baso # (Auto) 0.01 (0-0.2) K/uL Immature Gran # (Auto) 0.01 (0.00-0.02) K/uL PT (9.0-12.0) Seconds INR (0.9-1.1) APTT (21.0-31.0) Seconds PTT Ratio D-Dimer < 190 (0-500) ug/L FEU POC Sodium (135-144) mmol/L Sodium 139 (136-145) mmol/L POC Potassium (3.3-5.0) mmol/L Potassium 2.8 L (3.5-5.1) mmol/L POC Chloride (101-112) mmol/L Chloride 99 (98-107) mmol/L Carbon Dioxide 26 (21-32) mmol/L POC Total CO2 (24-31) mmol/L Anion Gap 14.0 H (3-11) POC Anion Gap (16-25) mmol/L POC BUN (7-18) mg/dl BUN 27 H (7-18) mg/dl Creatinine 1.07 (0.6-1.2) mg/dl POC Creatinine (0.6-1.3) mg/dl Est Cr Clr Drug Dosing 56.6 ml/min Est GFR ( Amer) 70.1 Est GFR (Non-Af Amer) 60.5 BUN/Creatinine Ratio 25.6 H (10-20) Glucose 138 H (70-99) mg/dl POC Glucose (other) (70-99) mg/dl Calcium 10.9 H (8.5-10.1) mg/dl POC Ioniz Calcium [place] (1.12-1.32) mmol/l Total Bilirubin 0.5 (0.2-1) mg/dl AST 27 (15-37) U/L ALT 37 (12-78) U/L Alkaline Phosphatase 74 (45-117) U/L Troponin I < 0.015 (0-0.045) ng/ml Total Protein 9.1 H (6.4-8.2) gm/dl Albumin 5.3 H (3.4-5.0) gm/dl Globulin 3.8 (2.5-4.0) gm/dl Albumin/Globulin Ratio 1.4 (0.9-2) Lipase 111 (73-393) U/L Specimen Hemolysis COVID-19 Eval Order SARS-CoV-2, RNA, NAAT (NEGATIVE) 06/29/20 06/29/20 06/29/20 Range/Units 16:44 16:56 18:26 WBC (4.8-10.8) K/uL RBC (4.2-5.4) M/uL Hgb (12.0-16.0) g/dL POC Hgb 16.7 H (12.0-16.0) g/dl Hct (37-47) % POC Hct 49 H (37-47) % MCV (80-100) fL MCH (25-34) pg MCHC (32-36) g/dL RDW Std Deviation (36.4-46.3) fL RDW Coeff of Soraya (11.5-14.5) % Plt Count (130-400) K/uL MPV (7.4-10.4) fL Immature Gran % (Auto) % Neut % (Auto) % Lymph % (Auto) % [place] % (Auto) % Eos % (Auto) % Baso % (Auto) % Neut # (Auto) (1.4-6.5) K/uL Lymph # (Auto) (1.2-3.4) K/uL [place] # (Auto) (0.11-0.59) K/uL Eos # (Auto) (0-0.5) K/uL Baso # (Auto) (0-0.2) K/uL Immature Gran # (Auto) (0.00-0.02) K/uL PT 9.3 (9.0-12.0) Seconds INR 0.9 (0.9-1.1) APTT 21.1 (21.0-31.0) Seconds PTT Ratio 0.8 D-Dimer (0-500) ug/L FEU POC Sodium 138 (135-144) mmol/L Sodium (136-145) mmol/L POC Potassium 2.8 L (3.3-5.0) mmol/L Potassium (3.5-5.1) mmol/L POC Chloride 99 L (101-112) mmol/L Chloride (98-107) mmol/L Carbon Dioxide (21-32) mmol/L POC Total CO2 30 (24-31) mmol/L Anion Gap (3-11) POC Anion Gap 13.0 L (16-25) mmol/L POC BUN 28 H (7-18) mg/dl BUN (7-18) mg/dl Creatinine (0.6-1.2) mg/dl POC Creatinine 0.8 (0.6-1.3) mg/dl Est Cr Clr Drug Dosing ml/min Est GFR ( Amer) Est GFR (Non-Af Amer) BUN/Creatinine Ratio (10-20) Glucose (70-99) mg/dl POC Glucose (other) 143 H (70-99) mg/dl Calcium (8.5-10.1) mg/dl POC Ioniz Calcium [place] 1.14 (1.12-1.32) mmol/l Total Bilirubin (0.2-1) mg/dl AST (15-37) U/L ALT (12-78) U/L Alkaline Phosphatase (45-117) U/L Troponin I (0-0.045) ng/ml Total Protein (6.4-8.2) gm/dl Albumin (3.4-5.0) gm/dl Globulin (2.5-4.0) gm/dl Albumin/Globulin Ratio (0.9-2) Lipase (73-393) U/L Specimen Hemolysis COVID-19 [email or web address] SARS-[facility]-2, RNA, NAAT (NEGATIVE) 06/29/20 Range/Units 18:26 WBC (4.8-10.8) K/uL RBC (4.2-5.4) M/uL Hgb (12.0-16.0) g/dL POC Hgb (12.0-16.0) g/dl Hct (37-47) % POC Hct (37-47) % MCV (80-100) fL MCH (25-34) pg MCHC (32-36) g/dL RDW Std Deviation (36.4-46.3) fL RDW Coeff of Soraya (11.5-14.5) % Plt Count (130-400) K/uL MPV (7.4-10.4) fL Immature Gran % (Auto) % Neut % (Auto) % Lymph % (Auto) % [place] % (Auto) % Eos % (Auto) % Baso % (Auto) % Neut # (Auto) (1.4-6.5) K/uL Lymph # (Auto) (1.2-3.4) K/uL [place] # (Auto) (0.11-0.59) K/uL Eos # (Auto) (0-0.5) K/uL Baso # (Auto) (0-0.2) K/uL Immature Gran # (Auto) (0.00-0.02) K/uL PT (9.0-12.0) Seconds INR (0.9-1.1) APTT (21.0-31.0) Seconds PTT Ratio D-Dimer (0-500) ug/L FEU POC Sodium (135-144) mmol/L Sodium (136-145) mmol/L POC Potassium (3.3-5.0) mmol/L Potassium (3.5-5.1) mmol/L POC Chloride (101-112) mmol/L Chloride (98-107) mmol/L Carbon Dioxide (21-32) mmol/L POC Total CO2 (24-31) mmol/L Anion Gap (3-11) POC Anion Gap (16-25) mmol/L POC BUN (7-18) mg/dl BUN (7-18) mg/dl Creatinine (0.6-1.2) mg/dl POC Creatinine (0.6-1.3) mg/dl Est Cr Clr Drug Dosing ml/min Est GFR ( Amer) Est GFR (Non-Af Amer) BUN/Creatinine Ratio (10-20) Glucose (70-99) mg/dl POC Glucose (other) (70-99) mg/dl Calcium (8.5-10.1) mg/dl POC Ioniz Calcium [place] (1.12-1.32) mmol/l Total Bilirubin (0.2-1) mg/dl AST (15-37) U/L ALT (12-78) U/L Alkaline Phosphatase (45-117) U/L Troponin I (0-0.045) ng/ml Total Protein (6.4-8.2) gm/dl Albumin (3.4-5.0) gm/dl Globulin (2.5-4.0) gm/dl Albumin/Globulin Ratio (0.9-2) Lipase (73-393) U/L Specimen Hemolysis COVID-19 Eval Order SARS-CoV-2, RNA, NAAT POSITIVE A* (NEGATIVE) Imaging Data Radiologist's Impression: CT OF THE HEAD WITHOUT CONTRAST CLINICAL HISTORY: Headache. Evaluate for bleed. COMPARISON STUDY: No previous studies for comparison. CT DOSE: 537.48 mGy.cm TECHNIQUE: Helical axial images of the head were obtained without IV contrast. Automated exposure control was utilized for the study. A dose lowering technique was utilized adhering to the principles of ALARA. FINDINGS: No acute intracranial hemorrhage, midline shift or mass effect is present. The ventricular system is unremarkable. The basal cisterns are patent. No extra-axial collections are present. There are no findings to suggest acute dural sinus thrombosis or acute territorial infarct. No significant calvarial abnormalities are present. Visualized portions of the sinuses and mastoid air cells are clear. IMPRESSION: No acute intracranial findings. ACT 112: Negative or not required by law. Electronically signed by: Aquilino Perkins M.D. 06/29/2020 5:14 PM Dictated: 06/29/201712 Transcribed: 06/29/201712 CT ANGIOGRAPHY OF THE CHEST, PULMONARY EMBOLUS PROTOCOL CLINICAL HISTORY: Chest pain. EKG changes. Clot in arm. Evaluate for pulmonary embolus. COMPARISON STUDY: Chest radiograph May 27, 2012. TECHNIQUE: Following IV administration of 120 mL of Optiray-320, helical axial images of the chest were obtained utilizing the pulmonary embolus protocol. Maximal intensity projections and sagittal and coronal reformats were viewed on an independent 3D workstation. IV contrast was administered without complication. Automated exposure control was utilized for the study. A dose lowering technique was utilized adhering to the principles of ALARA. CT DOSE: 213.96 mGy.cm FINDINGS: No pulmonary emboli are identified. There is no thoracic aortic dissection. The size of the heart is normal. There is no pericardial effusion. No enlarged axillary, mediastinal or hilar lymph nodes are present. No pneumothorax or pleural effusion is noted. There is no consolidation to suggest pneumonia. There are no suspicious pulmonary nodules. Bony thorax is unremarkable. Visualized portions of the stomach are fluid-filled and distended. IMPRESSION: 1. No pulmonary emboli identified. 2. No acute process within the chest. ACT 112: Negative or not required by law. Electronically signed by: Aquilino Perkins M.D. 06/29/2020 5:22 PM Dictated: 06/29/201713 Transcribed: 06/29/201713 ECG Data Attestation: I personally reviewed and interpreted this ECG as follows: Indication: + chest pain Rate (beats per minute): 111 Rhythm: + sinus tachycardia ECG ST segments: + ST depression and + ST elevation (aVR) ECG Findings: + U waves; no PVCs Comparison ECG Date: from (March 31, 2017) Change: the following changes noted (ST changes are new) Additional Comments: Repeat twelve-lead EKG was performed after the patient's chest pain was relieved. Per my interpretation it shows normal sinus rhythm at a rate of 93 bpm. There are some nonspecific ST changes with significant improvement from prior EKG. U wave still visible. No PVCs. MDM Narrative I did evaluate the patient as noted above. The patient is presenting with chest pain starting several hours ago with a sense of impending doom. She has no history of cardiac disease and stated that she had a good lipid profile recently when getting life insurance. She does, however, have a significant cardiac history in her family. IV access was established. I did place an order for continuous cardiac monitoring. The monitor showed sinus tachycardia at a rate of 112. I did order and personally review the patient's 12-lead EKG as described above. She has an abnormal EKG with ST elevation in aVR as well as ST depressions. I did treat her with sublingual nitroglycerin x2. She stated that her chest pain significantly improved. She had a little bit of pressure at this time and so she was given nitroglycerin paste after which her chest pressure resolved. She was also given 2 baby aspirin. I did order and review the patient's blood work as noted in the electronic medical record. Troponin is negative. Her CBC is unremarkable. Her potassium is decreased at 2.8. It is unclear why she would have a low potassium. She denies having diarrhea. She did states she vomited. She was given IV KCl as well as oral potassium supplementation. She also complains of a headache but states that she frequently gets headaches and this is not new for her. She last had a similar headache when she was diagnosed with COVID-19. I did order a CT of the head as well as CT angiogram of the chest. I did review the images myself as well as the radiology report as described above. There is no evidence of pulmonary embolism or aortic aneurysm. No intracranial hemorrhage. I did discuss the test results with the patient. I did recommend hospitalization for further care and evaluation. Her chest pain is relieved at this time and surprisingly her headache is improved despite receiving nitroglycerin. I did discuss the case with the welfare case worker and the hospitalist was informed. Impression & Plan Chest pain, Acute hypokalemia, Abnormal EKG, Acute headache Discharge Plan Visit Data Chief Complaint: Chest Pain Stated Complaint: CHEST PAIN, PAIN DOWN L ARM, SOB, NAUSEA ED Provider: John Vasquez Discharge Problem: Chest pain, Acute hypokalemia, Abnormal EKG, Acute headache Patient Disposition: Being Evaluated by Hospitalist Forms Stand Alone Forms: My [employer] Prescriptions Prescriptions: No Action No Known Home Medications RF: 0 Referrals Referrals: Caroline Roth CRNP [Primary Care Provider] -
[2020-06-29 17:03] LABS: Basophils # (auto) 0.01 K/uL (0-0.2); Basophils % (auto) 0.1 %; Eosinophils # (auto) 0.01 K/uL (0-0.5); Eosinophils % (auto) 0.1 %; Hematocrit (blood only) 45.2 % (37-47); Hemoglobin 15.9 g/dL (12.0-16.0); Immature Granulocytes # (auto) 0.01 K/uL (0.00-0.02); Immature Granulocytes % (auto) 0.1 %; Lymphocytes # (auto) 1.04 K/uL (1.2-3.4); Lymphocytes % (auto) 12.2 %; Mean Corpuscular Hemoglobin 33.6 pg (25-34); Mean Corpuscular Hgb Conc 35.2 g/dL (32-36); Mean Corpuscular Volume 95.6 fL (80-100); Mean Platelet Volume 10.4 fL (7.4-10.4); Monocytes # (auto) 0.27 K/uL (0.11-0.59); Monocytes % (auto) 3.2 %; Neutrophils % (auto) 84.3 %; Platelet Count 305 K/uL (130-400); RDW Coefficient of Variation 13.4 % (11.5-14.5); RDW Standard Deviation 46.9 fL (36.4-46.3); Red Blood Count 4.73 M/uL (4.2-5.4); White Blood Count 8.54 K/uL (4.8-10.8)
[2020-06-29] MEDS ORDERED: OPTIRAY 320 125ml IV ONE (17:06)
[2020-06-29 17:09] LABS: iSTAT Creatinine 0.8 mg/dl (0.6-1.3); iSTAT Hemoglobin 16.7 g/dl (12.0-16.0); iSTAT Ionized Calcium 1.14 mmol/l (1.12-1.32); iSTAT Potassium 2.8 mmol/L (3.3-5.0)
[2020-06-29 17:11] LABS: D Dimer < 190 ug/L FEU (0-500)
--- NOTE | 2020-06-29 17:16 | CT Scan Report ---
CT OF THE HEAD WITHOUT CONTRAST CLINICAL HISTORY: Headache. Evaluate for bleed. COMPARISON STUDY: No previous studies for comparison. CT DOSE: 537.48 mGy.cm TECHNIQUE: Helical axial images of the head were obtained without IV contrast. Automated exposure con trol was utilized for the study. A dose lowering technique was utilized adhering to the principles o f ALARA. FINDINGS: No acute intracranial hemorrhage, midline shift or mass effect is present. The ventricular system is unremarkable. The basal cisterns are patent. No extra-axial collections are present. There are no findings to suggest acute dural sinus thrombosis or acute territorial infarct. No significant calvarial abnormalities are present. Visualized portions of the sinuses and mastoid air cells are solomon ar. IMPRESSION: No acute intracranial findings. ACT 112: Negative or not required by law. Electronically signed by: Aquilino Perkins M.D. 06/29/2020 5:14 PM
[2020-06-29 17:23] LABS: Alanine Aminotransferase 37 U/L (12-78); Albumin Level 5.3 gm/dl (3.4-5.0); Aspartate Aminotransferase 27 U/L (15-37); BUN Creatinine Ratio 25.6 (10-20); Blood Urea Nitrogen 27 mg/dl (7-18); Calcium 10.9 mg/dl (8.5-10.1); Carbon Dioxide 26 mmol/L (21-32); Chloride 99 mmol/L (98-107); Creatinine Clr Calc Pharmacy 56.6 ml/min; Est GFR (African American) 70.1; Est GFR (Non-African American) 60.5; Glucose 138 mg/dl (70-99); Lipase 111 U/L (73-393); Potassium 2.8 mmol/L (3.5-5.1); Sodium 139 mmol/L (136-145)
--- NOTE | 2020-06-29 17:23 | CT Scan Report ---
CT ANGIOGRAPHY OF THE CHEST, PULMONARY EMBOLUS PROTOCOL CLINICAL HISTORY: Chest pain. EKG changes. Clot in arm. Evaluate for pulmonary embolus. COMPARISON STUDY: Chest radiograph May 27, 2012. TECHNIQUE: Following IV administration of 120 mL of Optiray-320, helical axial images of the chest we re obtained utilizing the pulmonary embolus protocol. Maximal intensity projections and sagittal and coronal reformats were viewed on an independent 3D workstation. IV contrast was administered withou t complication. Automated exposure control was utilized for the study. A dose lowering technique wa s utilized adhering to the principles of ALARA. CT DOSE: 213.96 mGy.cm FINDINGS: No pulmonary emboli are identified. There is no thoracic aortic dissection. The size of th e heart is normal. There is no pericardial effusion. No enlarged axillary, mediastinal or hilar lymph nodes are present. No pneumothorax or pleural effusion is noted. There is no consolidation to sugges t pneumonia. There are no suspicious pulmonary nodules. Bony thorax is unremarkable. Visualized porti ons of the stomach are fluid-filled and distended. IMPRESSION: 1. No pulmonary emboli identified. 2. No acute process within the chest. ACT 112: Negative or not required by law. Electronically signed by: Aquilino Perkins M.D. 06/29/2020 5:22 PM
[2020-06-29] MEDS ORDERED: POTASSIUM CHLORIDE / WTR 10 MEQ/100 ML PLCT IV ONE (17:25)
[2020-06-29] MEDS ORDERED: POTASSIUM CHLORIDE 10 MEQ TABCR PO STA (17:25)
[2020-06-29 17:30] LABS: Albumin Globulin Ratio 1.4 (0.9-2); Alkaline Phosphatase 74 U/L (45-117); Bilirubin,Total 0.5 mg/dl (0.2-1); Globulin 3.8 gm/dl (2.5-4.0); Total Protein 9.1 gm/dl (6.4-8.2); Troponin I < 0.015 ng/ml (0-0.045)
[2020-06-29] MEDS ORDERED: ASPIRIN CHEW 324 MG PO STA (17:31)
[2020-06-29] MEDS ORDERED: NITROGLYCERIN 2% OINTMENT 30GM TUBE EXT ONE (17:31)
--- NOTE | 2020-06-29 18:17 | History & Physical Report ---
Date of Service June 29, 2020 Assessment & Plan (1) Atypical chest pain: Most likely GI related with alcohol consumption and dehydration. However exertional component and mild ST changes on EKG with left chest/arm radiation mildly concerning for ACS. Trend troponins overnight. If negative can safely say this is not ACS as very low likelihood of unstable angina given duration. Monitor on telemetry overnight If troponins raised overnight will need to start on heparin drip, TTE, NPO after midnight and consult cardiology - otherwise will defer heparin given no chest pain and low likelihood of ACS. Continue on nitro patch as this helped her pain - ?esophageal spasm. IV famotidine 20mg IV given in ER (2) Hypokalemia: Supplementation given in ER Repeat with AM labs. ?secondary to vomiting/diet Recommend outpatient PCP follow up when well to see if she requires dietary supplementation. (3) SARS-CoV-2 positive: Previously diagnosed with COVID-19 in April. PCR again positive today. Isolation precautions although she does not appear to have any active infective signs of this. (4) Acute dehydration: NSS 2L bolus given in ER. 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 Started around 1pm today with chest pressure, relieved in the ER with nitroglycerin and now completely resolved when seen in ER. Initially severity 10/10, progressively getting worse, worse on exertion, radiating down left chest/arm. Never had a similar sensation before. She reports panicking and having a feeling of doom which she thinks made the pain worse. Better on receiving nitroglycerin in the ER. She reports having occasional GERD and tried taking tums although this did not help. She thinks she had an additional GERD feeling with a knot at the bottom of her stomach, no acid taste in her mouth starting earlier in the morning. This is on a background of binge drinking alcohol last night. This morning she woke up with a hang over and vomited. Took acetaminophen for the hang over but wasn't helping. She was dizzy on standing this morning and felt dehydrated. She denies daily alcohol drinking, usual once/week. Non-smoker, no prior OR or CVA, no HTN. She has a significant history of eating disorders but not had a problem with this recently (previously abused Synthroid, bulimia and anorexia). She is not on any medication for this. She denies any induced vomiting recently, no diarrhea. In the ER she was noted to have non-specific ST abnormality on EKG and initial troponin negative (although taken only 2 hours after chest pain). Hypokalemia on labs which was treated in the ER with supplementation. Labs generally appear to be hemoconcentrated. CTA negative for PE. She was referred to medicine for admission and ongoing management of chest pain. Allergies Allergy/AdvReac Type Severity Reaction Status Date / Time No Known Allergies Allergy Verified 06/29/20 18:18 Home Medications Medication Instructions Recorded Confirmed Type No Known Home Medications 06/29/20 06/29/20 History Past Med/Surg History Medical History DVT (deep vein thrombosis) in Eating disorder Family History Aunt Coronary heart disease Uncle Coronary heart disease Social History Smoking Status: Never smoker Hx Alcohol Use: Yes Alcohol type: beer and other Hx Substance Use: No Preferred Language: Uzbek Communication Ability: Effective Mobile Application Developer Required: No Beliefs That Will Affect Care: None Current Living Situation: Spouse Other Information That Helps Us Care for You: No Feels Safe at Home: Yes Safety Concerns: Feels Safe At This Time Assistive Devices: Glasses Review of Systems Review of Systems: All systems reviewed & are unremarkable except as noted in HPI & below Physical Exam Constitutional: WD/WN, vitals as above Eyes: + anicteric sclerae; normal pupil size ENMT: external ear and nose normal, oropharynx normal Neck: trachea midline, no thyromegaly Respiratory: normal respiratory effort, lungs clear to auscultation Cardiovascular: RRR, no murmur, no edema Gastrointestinal (Abdomen): normal bowel sounds, soft, nontender, no hepatosplenomegaly Musculoskeletal: no cyanosis or clubbing, extremities motor strength 5/5 Skin: no rashes, warm and dry Neurologic: moves all extremities and awake; not confused Psychiatric: A+Ox3, euthymic affect Genitourinary: no CVA tenderness Results & Data Results & Data ([facility]) Vital Signs (Past 12 Hours) Vital Signs Temp Pulse Pulse Resp BP BP Pulse Ox 06/29/20 17:58 84 18 129/82 99 06/29/20 16:50 115 H 22 139/88 98 06/29/20 16:33 36.1 C L 126 H 20 149/[address] OF THE HEAD WITHOUT CONTRAST IMPRESSION: No acute intracranial findings. CT ANGIOGRAPHY OF THE CHEST, PULMONARY EMBOLUS PROTOCOL IMPRESSION: 1. No pulmonary emboli identified. 2. No acute process within the chest. Medications Administered ER medications given: Nitroglycerin 0.4 mg sublingual Potassium chloride 40 meq p.o. Nitroglycerin 2% 0.5 inch patch Aspirin 162 mg p.o. stat ECG Indication: chest pain Rate (beats per minute): 93 Rhythm: normal sinus Findings: + other (Non specific ST abnormality, mild depression in anterior leads) Comparison ECG Date: from (Mar 31, 2017) Change: the following changes noted (Non specific ST abnormality is new but not dynamic) Code Status & VTE Plan Code Status Full VTE Prophylaxis Plan VTE Prophylaxis will be ordered: No Reason for no VTE drug order: Treatment not indicated Reason for no VTE mechanical prophylaxis: Treatment not indicated PG Care Time/CCT Total # of Minutes Spent Total Time Spent with Patient: Total time spent is greater than 50% in coordination of care (as documented) at patient's floor/unit and/or counseling patient: Coding Level of Care Code 63647 OBS Care - Level 3 Diagnoses Atypical chest pain R07.89 Hypokalemia E87.6 SARS-CoV-2 positive U07.1 Acute dehydration E86.0
[2020-06-29] MEDS ORDERED: SODIUM CHLORIDE 0.9% 1000ML 1,000 ML IV ONE ×2 (18:18→20:16)
[2020-06-29 18:20] LABS: INR 0.9 (0.9-1.1); Partial Thromboplastin Ratio 0.8; Partial Thromboplastin Time 21.1 Seconds (21.0-31.0); Prothrombin Time 9.3 Seconds (9.0-12.0)
[2020-06-29] MEDS ORDERED: FAMOTIDINE 20MG/5ML IV PUSH IV STA (18:31)
[2020-06-29] MEDS ORDERED: SODIUM CHLORIDE 0.9% 1000ML 1,000 ML IV STA (18:52)
[2020-06-29] MEDS ORDERED: FAMOTIDINE 20MG/5ML IV PUSH IV ONE (18:56)
[2020-06-29] MEDS ORDERED: ONDANSETRON INJ 2 MG/ML 2 ML VIAL IV PRN (20:16)
[2020-06-29] MEDS ORDERED: ALUMINUM/MAGNESIUM SUSP 30 ML UDC PO PRN (20:16)
[2020-06-29] MEDS ORDERED: POLYETHYLENE (MIRALAX) 17 GM PACK PO PRN (20:16)
[2020-06-29] MEDS: ACETAMINOPHEN 325 MG TAB PO PRN (20:37)
[2020-06-30] MEDS: ACETAMINOPHEN 325 MG TAB PO PRN ×3 (00:26→11:22)
[2020-06-30] MEDS: NITROGLYCERIN 2% OINTMENT 30GM TUBE EXT SCH ×3 (00:32→11:23)
[2020-06-30 07:18] LABS: BUN Creatinine Ratio 23.4 (10-20); Blood Urea Nitrogen 20 mg/dl (7-18); Calcium 8.4 mg/dl (8.5-10.1); Carbon Dioxide 25 mmol/L (21-32); Chloride 111 mmol/L (98-107); Creatinine Clr Calc Pharmacy 71.2 ml/min; Est GFR (African American) 92.6; Est GFR (Non-African American) 79.9; Glucose 80 mg/dl (70-99); Potassium 3.3 mmol/L (3.5-5.1); Sodium 144 mmol/L (136-145); Troponin I < 0.015 ng/ml (0-0.045)
[2020-06-30] MEDS ORDERED: POTASSIUM CHLORIDE CRTAB 20 MEQ TABCR PO ONE (13:00)
--- NOTE | 2020-06-30 13:12 | Electrocardiogram Report ---
Test Reason : Blood Pressure : / mmHG Vent. Rate : 111 BPM Atrial Rate : 111 BPM P-R Int : 166 ms QRS Dur : 080 ms QT Int : 374 ms P-R-T Axes : 077 081 065 degrees QTc Int : 508 ms Sinus tachycardia Biatrial enlargement Left ventricular hypertrophy ST segement changes concerning for ischemia Abnormal ECG When compared with ECG of 31-MAR-2017 07:38, DE interval has increased Vent. rate has increased BY [address] no longer elevated in Inferior leads ST now depressed in Anterior leads Confirmed by Álvaro Owen ([id number]) on 06/30/2020 1:11:43 PM Referred By: REFERRED SELF Confirmed By:Mario Owen
--- NOTE | 2020-06-30 13:13 | Electrocardiogram Report ---
Test Reason : Blood Pressure : / mmHG Vent. Rate : 093 BPM Atrial Rate : 093 BPM P-R Int : 130 ms QRS Dur : 084 ms QT Int : 374 ms P-R-T Axes : 071 079 071 degrees QTc Int : 465 ms Normal sinus rhythm Possible Left atrial enlargement Nonspecific ST abnormality Abnormal ECG When compared with ECG of 29-JUN-2020 16:41, (unconfirmed) ST no longer depressed in Anterior leads Confirmed by Álvaro Owen ([id number]) on 06/30/2020 1:12:59 PM Referred By: REFERRED SELF Confirmed By:Mario Owen
--- NOTE | 2020-06-30 13:35 | Discharge Summary ---
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 Started around 1pm today with chest pressure, relieved in the ER with nitroglycerin and now completely resolved when seen in ER. Initially severity 10/10, progressively getting worse, worse on exertion, radiating down left chest/arm. Never had a similar sensation before. She reports panicking and having a feeling of doom which she thinks made the pain worse. Better on receiving nitroglycerin in the ER. She reports having occasional GERD and tried taking tums although this did not help. She thinks she had an additional GERD feeling with a knot at the bottom of her stomach, no acid taste in her mouth starting earlier in the morning. This is on a background of binge drinking alcohol last night. This morning she woke up with a hang over and vomited. Took acetaminophen for the hang over but wasn't helping. She was dizzy on standing this morning and felt dehydrated. She denies daily alcohol drinking, usual once/week. Non-smoker, no prior DE or CVA, no HTN. She has a significant history of eating disorders but not had a problem with this recently (previously abused Synthroid, bulimia and anorexia). She is not on any medication for this. She denies any induced vomiting recently, no diarrhea. In the ER she was noted to have non-specific ST abnormality on EKG and initial troponin negative (although taken only 2 hours after chest pain). Hypokalemia on labs which was treated in the ER with supplementation. Labs generally appear to be hemoconcentrated. CTA negative for PE. She was referred to medicine for admission and ongoing management of chest pain. Principal Diagnosis Chest pain due to vomiting, esophagus irritation Discharge Exam Constitutional WD/WN, vitals as above Neck trachea midline, no thyromegaly Respiratory normal respiratory effort, lungs clear to auscultation Cardiovascular RRR, no murmur, no edema Gastrointestinal (Abdomen) normal bowel sounds, soft, nontender, no hepatosplenomegaly Musculoskeletal no cyanosis or clubbing, extremities motor strength 5/5 Skin no rashes, warm and dry Neurologic patellar DTR's 2+ bilat, sensation intact and PERRL, EOMI, accommodation nl, no face palsy, no dysarthria Psychiatric A+Ox3, euthymic affect Lymphatic no cervical or axillary lymphadenopathy Discharge Data Allergies Allergy/AdvReac Type Severity Reaction Status Date / Time No Known Allergies Allergy Verified 06/29/20 18:18 Consultations 06/29/20 17:36 ED Decision to Admit Stat Ordered Studies 06/29/20 16:47 CT angio chest PE protocol Stat 06/29/20 16:53 CT head/brain wo con Stat Hospital Course (1) Atypical chest pain: Most likely GI related with alcohol consumption, vomiting the next day and very little PO intake troponin negative x 3 sets, no obvious changes on EKG CTA chest negative for PE no known risk factors for coronary disease most logical explanation for pain is excessive alcohol intake followed by vomiting the next day, irritation of esophagus no pain today at time of discharge eating and drinking well she should follow up with PCP, if she has recurrent chest pain without drinking or vomiting, then would get exercise stress echo (2) Hypokalemia: Supplementation given in ER Repeat level is up to 3.3, give 20mEq prior to discharge due to GI losses with vomiting which has now stopped (3) SARS-CoV-2 positive: Previously diagnosed with COVID-19 in April. PCR again positive today. unclear why she would test positive again, no symptoms of COVID and CT chest without infiltrates, no hypoxia her just returned from [place] and he is feeling ill, he is getting tested she should have immunity given her infection in April when she actually did have symptoms told her to notify her employer and follow their protocol (4) Acute dehydration: NSS 2L bolus given in ER. BUN down to 20 from 27 eating and drinking well today, she will make sure she drinks enough fluids at home Total Time Total Time Spent Total Time Spent (In Minutes): 20 Total Time Includes: Examination of the Patient, Discharge Planning and Medication Reconciliation Discharge Plan Discharge Items Patient Disposition: Home - Self-Care Reason For Visit: CHEST PAIN RULE OUT DE Discharge Diagnosis: Chest pain, likely from vomiting Hypokalemia Dehydration COVID positive test Condition on Discharge: Good Goals: stay well hydrated and well nourished Activity: Resume your previous activity Non-emergency contact: Primary Care Provider Call non-emergency contact if: you have any medication questions and your symptoms worsen Follow-up/Referrals: Caroline Roth CRNP [Primary Care Provider] - (one week) Diet: Regular Addtl Attending Provider Instructions: Chest pain, dehydration, hypokalemia chest pain most likely due to vomiting, irritation/burning of esophagus troponin negative for three sets CT chest negative for pulmonary embolism, no evidence of pneumonia no risk factors for coronary disease, this would be very low probability plus there is another reason for the pain with the vomiting episodes if chest pain would happen again would follow up with PCP, get an exercise stress test as outpatient received three liters of normal saline, drinking better today, no longer dehydrated potassium up to 3.3, will give 20mEq prior to leaving, continue to eat well low potassium was due to GI losses with vomiting Positive COVID test unclear why you would test positive if you had COVID back in April certainly you should have immunity there are no signs of COVID pneumonia on CT chest, no hypoxia, no fever would let your employer know that you had positive test on 06/29 and follow their protocol Pending Studies at Discharge: No Stand-Alone Forms: [facility] Sm[facility] Cess[facility] Medications and DC Order Prescriptions: Continued No Known Home Medications RF: 0 Discharge Orders: Discharge Order (Routine); Ordered 06/30/20 Ordered By: Blue Clement/Other Patient Handouts: How COVID-19 Spreads Admission Data Admit Date/Time: 06/29/20 18:55 Attending Provider: Blue Lopez Admit Provider: Akash Valdez Primary Care Provider: Caroline Roth Other Providers: Akash Valdez Coding Level of Care Code 34718 OBS Care - Discharge Diagnoses Atypical chest pain R07.89 Hypokalemia E87.6 SARS-CoV-2 positive U07.1 Acute dehydration E86.0
--- NOTE | 2020-06-30 16:34 | Electrocardiogram Report ---
Test Reason : Blood Pressure : / mmHG Vent. Rate : 063 BPM Atrial Rate : 063 BPM P-R Int : 118 ms QRS Dur : 094 ms QT Int : 392 ms P-R-T Axes : 038 078 064 degrees QTc Int : 401 ms Normal sinus rhythm Normal ECG When compared with ECG of 29-JUN-2020 17:27, QT has shortened Confirmed by Álvaro Owen ([id number]) on 06/30/2020 4:34:41 PM Referred By: REFERRED SELF Confirmed By:Mario Owen
== END 2020-06-30 14:58 | disposition home or self-care (01) ==
LOC: ED 16:31 → 2S 16:31 → SUATTDRO 18:55 → 2S 19:43